=== PATIENT | male | born 1960 | race Caucasian/White ===

== ENCOUNTER → 2019-09-18 09:53 | Outpatient (BNVA) | payer MEDICARE, SELFPAY | PROVIDERS: Family Provider Family Medicine; PCP Family Medicine; Visit Provider Otolaryngology | DX: J32.9 Chronic sinusitis, unspecified (principal); J34.2 Deviated nasal septum; J34.3 Hypertrophy of nasal turbinates; J31.0 Chronic rhinitis; T48.5X5A Adverse effect of other anti-common-cold drugs, initial encounter; X58.XXXA Exposure to other specified factors, initial encounter; G47.30 Sleep apnea, unspecified; F17.210 Nicotine dependence, cigarettes, uncomplicated | CPT/HCPCS: 99203; 99214 ==

== ENCOUNTER 2019-09-19 13:49 | Outpatient (CLI) | payer MEDICARE, SELFPAY ==
--- NOTE | 2019-09-19 14:05 | XR_ITS ---
WS: [id number] Chest 2 views, 09/19/2019 Clinical Data: chest pain right sided Comparison: PA and lateral chest, 05/30/2017. Findings: No nodules, masses or effusions are seen. The heart is normal. The pulmonary vascularity is not increased. No pneumonia or pneumothorax is seen. Negative chest. XR/XR chest 2V* [id number] Impression:
--- NOTE | 2019-09-19 14:05 | CT_ITS ---
WS: [id number] CT SINUSES TECHNIQUE: Noncontrast CT of the paranasal sinuses with coronal and sagittal reformatted images. CLINICAL INFORMATION: CHRONIC SINUSITIS COMPARISON: None. DLP: [id number] scans at [facility] use at least one of these dose optimization techniques: automat ed exposure control; mA and/or kV adjustment per patient size (includes targeted exams where dose is matched to clinical indication); or iterative reconstruction. FINDINGS: Nasal septum is midline. Normal anterior nasal bones. Maxillary sinuses are well aerated. Hypoplastic frontal sinuses. Mild mucosal thickening left frontal sinus and frontoethmoidal recess with partial opacification of the frontal ethmoidal recess. Mild mucosal thickening ethmoid air cells. 4 Sphenoid sinuses are well aerated. Mild mucosal thickening with mild narrowing along the sphenoid sin us ostia. Mastoid air cells are well aerated. Ostiomeatal units are patent bilaterally. 1. Nasal septum is midline. 2. Ostiomeatal units are patent bilaterally. 3. Maxillary sinuses are well aerated. 4. Mild mucosal thickening in the left frontal sinus with partial opacification the left frontal eth moidal recess. Hypoplastic right frontal sinus. 5. Mild mucosal thickening in the ethmoid air cells. 6. Mastoid air cells are well aerated. CT/CT sinus wo con* [id number] IMPRESSION:
== END 2019-09-19 13:50 | disposition home or self-care (01) ==
LOC: RAD 13:53
PROVIDERS: Family Provider Family Medicine; PCP Family Medicine; Visit Provider Family Medicine
DX: R07.9 Chest pain, unspecified (principal); J32.9 Chronic sinusitis, unspecified
CPT/HCPCS: 70486; 71046

== ENCOUNTER → 2019-09-23 13:03 | Outpatient (BNVA) | payer MEDICARE, SELFPAY | PROVIDERS: Family Provider Family Medicine; PCP Family Medicine; Visit Provider Psychiatry & Neurology Psychiatry | DX: F34.1 Dysthymic disorder (principal); F15.20 Other stimulant dependence, uncomplicated; F25.0 Schizoaffective disorder, bipolar type | CPT/HCPCS: 99213 ==

== ENCOUNTER 2019-10-24 16:31 | Outpatient (CLI) | payer MEDICARE, SELFPAY ==
--- NOTE | 2019-10-24 16:39 | XRR_ITS ---
PROCEDURE INFORMATION: Exam: XR Chest, 2 Views Exam date and time: 10/24/2019 4:46 PM Age: 59 years old Clinical indication: Cough; Additional info: SOB, cough x 1 week TECHNIQUE: Imaging protocol: XR of the chest Views: 2 views. COMPARISON: CR XR chest 2V* [id number] 09/19/2019 2:31 PM FINDINGS: Lungs: Stable changes of emphysema and stable chronic interstitial changes in both lungs. Improved aeration of the lung bases. No focal consolidation. Pleural space: Unremarkable. No pleural effusion. No pneumothorax. Heart/Mediastinum: Unremarkable. No cardiomegaly. Bones/joints: Unremarkable. XR/XR chest 2V* [id number] IMPRESSION: No acute finding.
== END 2019-10-24 16:32 | disposition home or self-care (01) ==
LOC: RAD 16:35
PROVIDERS: Family Provider Family Medicine; PCP Family Medicine; Visit Provider Family Medicine
DX: R06.02 Shortness of breath (principal)
CPT/HCPCS: 71046; 87804

== ENCOUNTER → 2019-10-30 15:48 | Outpatient (BNVA) | payer MEDICARE, SELFPAY | PROVIDERS: Family Provider Family Medicine; PCP Family Medicine; Visit Provider Otolaryngology | DX: J32.9 Chronic sinusitis, unspecified (principal); J34.2 Deviated nasal septum; J34.3 Hypertrophy of nasal turbinates; G47.30 Sleep apnea, unspecified; J31.0 Chronic rhinitis; T48.5X5A Adverse effect of other anti-common-cold drugs, initial encounter; X58.XXXA Exposure to other specified factors, initial encounter | CPT/HCPCS: 96372; 99214; J3301 ==

== ENCOUNTER 2019-11-11 08:32 | Outpatient (CLI) | payer MEDICARE, SELFPAY ==
--- NOTE | 2019-11-11 08:52 | MR_ITS ---
WS: [id number] MRI CERVICAL SPINE HISTORY: cervical pain COMPARISON: Cervical spine CT 05/10/2019 Straightening of the normal cervical lordosis. Small amount of edema along the adjacent endplates of C7 and T1. Disc space narrowing is mild to moderate with endplate osteophytes extending anterior and posterior m ost significant from C4 to C7. Signal within the cord is normal. Craniocervical junction, C1 and C2 relationship, odontoid process and soft tissues are normal. C2-C3: Normal. C3-C4: Mild osteophytic ridging and disc bulging. There is shallow central disc protrusion with near complete effacement of CSF. No stenosis. C4-C5: Annular disc bulging and osteophytic ridging with facet arthropathy. Very shallow central disc protrusion. Mild LEFT foraminal stenosis due to osteophyte disease. C5-C6: Osteophytic ridging with facet arthropathy and disc bulging. Mild disc osteophyte contact on t he ventral cord. There is a very slight central and bilateral foraminal stenosis. C6-C7: Diffuse annular disc bulging extends asymmetrically to the RIGHT. There is deformity of the RI GHT lateral thecal sac with posterior displacement of the right-sided nerve roots. Mild central and b ilateral foraminal narrowing. Small disc osteophyte in the RIGHT foramen with mild posterior displace ment of the nerve roots. C7-T1: Diffuse asymmetric disc bulging and osteophytosis. Very slight encroachment and narrowing of t he central canal. There is mild central and bilateral foraminal stenosis. Paraspinal soft tissue are normal. MR/MR cervical spin wo con* [id number] IMPRESSION: 1. Multilevel mild to moderate spondylosis throughout the cervical spine. No s evere stenosis. 2. Reactive marrow edema in the adjacent endplates at C7-T1. 3. Mild central and bilateral foraminal stenosis at C7-T1 due to disc osteophy te disease. 4. Mild LEFT foraminal stenosis at C4-5 due to osteophytes. 5. Minimal central and bilateral foraminal stenosis at C5-6. 6. Mild disc osteophyte deformity of the RIGHT lateral thecal sac at C6-7 resu lting in mild central and bilateral foraminal narrowing. Most significant encro achment on the nerve roots in the RIGHT foramen.
--- NOTE | 2019-11-11 09:30 | XR_ITS ---
WS: [id number] LATERAL CERVICAL SPINE: 3 view. Lateral radiographs are performed in upright neutral, flexion and extension to the patient's toleranc e. HISTORY: cervical pain COMPARISON: 05/10/2019 and 03/19/2018 Straightening of the normal cervical lordosis. Moderate disc space narrowing and osteophytosis from C 4 through C7. There are small endplate osteophytes extend posteriorly from C5 and C6 by 3 mm. No frac tures. Less than 2 mm retrolisthesis of C3, C4 and C5 with extension. XR/XR cervical spine fl/ex [id number] IMPRESSION: 1. Mild spondylitic changes from C4 through C7. 2. No instability. Less than 2 mm retrolisthesis of C3, C4 and C5 with extensi on.
== END 2019-11-11 08:33 | disposition home or self-care (01) ==
LOC: RADWPI 08:38
PROVIDERS: Family Provider Family Medicine; PCP Family Medicine; Visit Provider Specialist
DX: M50.020 Cervical disc disorder with myelopathy, mid-cervical region, unspecified level (principal); M47.892 Other spondylosis, cervical region; M48.03 Spinal stenosis, cervicothoracic region; M48.02 Spinal stenosis, cervical region; M25.78 Osteophyte, vertebrae
CPT/HCPCS: 72040; 72141

== ENCOUNTER → 2019-11-21 15:24 | Outpatient (BNVA) | payer MEDICARE, SELFPAY | PROVIDERS: Family Provider Family Medicine; PCP Family Medicine; Visit Provider Otolaryngology | DX: J34.2 Deviated nasal septum (principal); J34.3 Hypertrophy of nasal turbinates; G47.30 Sleep apnea, unspecified; J31.0 Chronic rhinitis; T48.5X5A Adverse effect of other anti-common-cold drugs, initial encounter; X58.XXXA Exposure to other specified factors, initial encounter; R49.0 Dysphonia | CPT/HCPCS: 31575; 99214 ==

== ENCOUNTER → 2019-11-26 15:00 | Outpatient (BNVA) | payer MEDICARE, SELFPAY | PROVIDERS: Family Provider Family Medicine; PCP Family Medicine; Visit Provider Family Medicine | DX: Z01.818 Encounter for other preprocedural examination (principal) | CPT/HCPCS: 80053; 85025 ==

== ENCOUNTER → 2019-11-28 12:13 | Outpatient (BNVA) | payer MEDICARE, SELFPAY | PROVIDERS: Family Provider Family Medicine; PCP Family Medicine; Visit Provider Family Medicine | DX: Z01.818 Encounter for other preprocedural examination (principal) | CPT/HCPCS: 80053; 85025 ==

== ENCOUNTER 2019-12-02 10:23 | Observation (INO) | payer MEDICARE, SELFPAY ==
[2019-11-29 08:24] VITALS: BMI 27.3
--- NOTE | 2019-11-29 08:44 | ANES.PREANE2 ---
Pre-Anesthetic Assessment Pre-Anesthetic Assessment: Height/Weight: Height 1.75 m Weight 83.915 kg Preop Diagnosis: Intervertebral disc disorder with myelopathy, mid cervical region Proposed Procedure: Operation Date: 12/02/19 07:00 Proposed Procedures p Anterior Cervical Discecotmy&Fusion C5-C6, C6-C7 2Lev 92450 M50.020(Not Applicable) - Baldomero Moreno MD Social: Social History: Tobacco Packs per day: 50+ Comment: quit 1 month Exam: Pre-Anes Outpt Exam: alert, oriented x 3, clear to auscultation bilaterally and regular rate & rhythm Airway: Submandibular: WNL Cervical ROM: WNL MP: 1 Dentition: False Pulmonary: Pulmonary: COPD and Sleep apnea Comments: breathing feels good CV/HEM: Comments: stress test '10 negative 2 blocks/2FOS without agina/ moderate DOWNING Musc/skel: Musc/skel: Lower Back Pain Comments: bilateral radiculopathy lower & upper extremities Anesthetic Plan: ASA status: 3 Anesthesia: General PFSH Anesthesia PFSH: Social History Smoking and tobacco status: former smoker Alcohol intake: never Lives independently: Yes Marital status: Current occupational status: disabled History of recent travel: No Data Anesthesia Cardiac Studies: No Data to Display
[2019-12-02] VITALS (19 sets, daily range): BP systolic 127–173; BP diastolic 61–118; PULSE 99–123; RESP 7–19; TEMP 36.4–37.1; O2SAT 90–100
[2019-12-02] MEDS: sodium chloride 0.9% 1,000 ML 30 ML IV (06:09)
[2019-12-02] MEDS: fentaNYL 50 mcg/mL INJ 2mL IVP ×2 (06:29→07:03)
--- NOTE | 2019-12-02 06:53 | P.HPUD_ITS ---
Surgery/Procedure H&P Update DATE OF PROCEDURE: December 02, 2019 DATE H&P PERFORMED: 11/26/19 H&P UPDATE INFORMATION: I have reviewed H&P completed within last 30 days and [place] [facility] [place] indicated [place]OP DIAGNOSIS: Intervertebral disc disorder with myelopathy, mid cervical region PRIMARY INDICATION FOR PROCEDURE: Pain PLANNED PROCEDURE: Operation Date: 12/02/19 07:00 Proposed Procedures Anterior Cervical Discectomy/Fusion/fixation, C5-C6, C6-C7 64203 M50.020(Not Applicable) - Baldomero Moreno MD
--- NOTE | 2019-12-02 06:59 | P.ANESUD_ITS ---
Pre-Anesthetic Update Pre-Anesthetic Assessment: Date of Surgery/Procedure: 12/02/19 Preop Dariana gnosis: Intervertebral disc disorder with myelopathy, mid cervical region Proposed Procedure: Operation Date: 12/02/19 07:00 Proposed Procedures p Anterior Cervical Discecotmy&Fusion C5-C6, C6-C7 2Lev 90381 M50.020(Not Applicable) - Baldomero Moreno MD Any changes to Pre-Anesthetic Assessment?: No Last Intake: Intake NPO > 8 hrs Last Liquid Date 12/01/19 Last Solid Date 12/01/19 Vitals: Temperature 98 F 12/02/19 06:01 Temperature Source Temporal Artery S can 12/02/19 06:01 Pulse Rate 99 12/02/19 06:01 Pulse Rhythm 12/02/19 06:01 Pulse Strength 3+ Normal 12/02/19 06:01 Respiratory Rate 18 12/02/19 06:29 Respiratory Effort 12/02/19 06:29 Respiratory Depth Normal 12/02/19 06:29 Respiratory Patter n 12/02/19 06:29 Blood Pressure 134/94 12/02/19 06:01 Blood Pressure Leandra n 107 12/02/19 06:01 Pulse Oximetry 94 12/02/19 06:29 Oxygen Delivery Me thod 12/02/19 06:01 Exam: Pre-Anes Outpt Exam: alert, oriented x 3, clear to auscultation bilaterally and regular rate & rhythm Cardiac Studies: No Data to Display
--- NOTE | 2019-12-02 07:07 | PM.OP2 ---
 Brief Operative Note: Date of procedure: 12/02/19 Pre-op diagnosis: Intervertebral Disc disorder with myelopathy, midcervical Post-op diagnosis: same (with instability of joint) Procedure Done: C5-C7 ACDFF Surgeon: Baldomero Moreno Estimated blood loss (mL): 25 Complications: None Post-op Plan: PACU, then surgical cuenca Condition: stable Disposition: PACU Coding Level of Care Code Acute Line Service Supervisor for Alma Kenny
--- NOTE | 2019-12-02 07:09 | XRR_ITS ---
PROCEDURE INFORMATION: Exam: XR Spine, 1 view; Cervical Exam date and time: 12/02/2019 8:17 AM Age: 59 years old Clinical indication: Device placement; Other: Cervical; Additional info: Surgery TECHNIQUE: Imaging protocol: XR of the spine, 1 view. Exam focused on the cervical spine. COMPARISON: CR XR cervical spine fl/ex [id number] 11/11/2019 8:54 AM FINDINGS: Tubes, catheters and devices: An endotracheal tube is present in the cervical thoracic trachea, extending into the neck Vertebrae: Mild C4-C5 retrolisthesis. Posterior C4-C5 and C5-C6 disc narrowing. Mild C5-C6 spondylosis. Heart/Mediastinum: And anterior needle is present overlying the trachea, the tip at C5-C6 transverse level. Soft tissues: Surgical clips overlie the C1-C3 level. XR/XR cervical spine 1ort [id number] IMPRESSION: 1. Degenerative changes as above. 2. No acute cervical spinal bony abnormality identified.
--- NOTE | 2019-12-02 07:24 | XRR_ITS ---
PROCEDURE INFORMATION: Exam: XR Spine, 1 view; Cervical Exam date and time: 12/02/2019 8:07 AM Age: 59 years old Clinical indication: Device placement; Other: Cervical; Additional info: Surgery TECHNIQUE: Imaging protocol: XR of the spine, 1 view. Exam focused on the cervical spine. COMPARISON: CR XR cervical spine 1ort [id number] 12/02/2019 7:36 AM FINDINGS: Tubes, catheters and devices: An endotracheal tube is present in the cervical thoracic trachea, extending into the neck Vertebrae: Mild C4-C5 retrolisthesis. Posterior C4-C5 and C5-C6 disc narrowing. Mild C5-C6 spondylosis. The needle now haney the anterior C5-C6 disc level. Dental: Edentulous maxilla and mandible. Soft tissues: Surgical clips overlie the C1-C3 level. Anterior cervical soft tissue were tractor. XR/XR cervical spine 1ort [id number] IMPRESSION: The needle now haney the anterior C5-C6 disc level.
[2019-12-02] MEDS: thrombin 5,000 unit SDV 5000 UNIT XX (07:51)
--- NOTE | 2019-12-02 07:55 | XR_ITS ---
WS: [id number] CERVICAL SPINE TECHNIQUE: 3 views of the cervical spine CLINICAL INFORMATION: POST FUSION AP/LAT IN PACU COMPARISON: None. FINDINGS: Moderate spondylitic changes. Slight exaggeration of the normal cervical lordosis. Early postoperativ e fusion C5-C7 with interbody fusion. Surgical clips in the high left neck. Moderate facet arthropath y. XR/XR cervical spine 3V* [id number] IMPRESSION: 1. Slight exaggeration normal cervical lordosis. 2. Satisfactory early Postoperative changes anterior cervical fusion C5-C7. 3. Surgical clips left upper neck.
--- NOTE | 2019-12-02 10:41 | SUR.PHASEI ---
PT TO PACU SLEEPY WITH ORAL AIRWAY IN PLACE WITH GOOD RESP NOTED VSS IV PATENT NECK DRESSING D/I NO SWELLING C COLLAR IN PLACE. PT DOES NOT AWAKE TO VOICE.
--- NOTE | 2019-12-02 11:37 | SUR.PHASEI ---
1100 PT TO ROOM ALERT UP TO BATHROOM WITH MINIMAL ASSIST , NURSE TO DO VSS LATER , PT DENIES NAUSEA AND PAIN TAKING OCC ICE CHIPS WITHOUT DIFFICULTY, NECK UNCHANGED DRESSING D/I WITH ONE PINHEAD SIZE DROP OF DRAINAGE LT RED. NO SWELLING, C COLLAR IN PLACE
[2019-12-02] MEDS: ketorolac 30 mg/mL INJ IVP (12:04)
[2019-12-02] MEDS: lactated ringers 1,000 ML 90 ML IV (12:04)
[2019-12-02] MEDS: atorvastatin 40 mg Tablet 20 MG PO (12:04)
--- NOTE | 2019-12-02 13:50 | ECG_ITS ---
Measurements Intervals [place] Rate: 109 P: 55 W[place]: 163 QRS: 57 QRSD: 96 T: 64 QT: 299 QTc: 403 SINUS TACHYCARDIA NONSPECIFIC T-WAVE ABNORMALITY ABNORMAL RHYTHM ECG Compared to ECG 02/17/2018 16:02:57 T-wave abnormality now present Sinus rhythm no longer present Electronically Signed On 12-02-2019 19:24:13 CDT by Jaky Nicole M.D. [email or web address]
--- NOTE | 2019-12-02 14:18 | PM.CONSULT ---
Providers/Reason For Consult Consulting Physican/Specialty*: Mauri Berry MD, hospitalist Reason for Consult*: Tachycardia, hypertension Attending Physician: Baldomero Moreno MD Primary Care Provider: Christi Zurita DO History of Present Illness History of Present Illness Bull Combs is a 59 year old male who underwent C5/C7 ACDF today by Dr. Moreno without complications. When he transition to the floor apparently he was quite tachycardic, in the 120s with an elevated blood pressure of 173/118 recorded. The nurse at first told me that there was concern of SVT, but upon reviewing telemetry it appears he is in sinus tachycardia. Patient himself reports feeling hot but otherwise no symptoms. He denies any shortness of breath, chest discomfort, or any other symptoms. Review of Systems General: Reports: 10 or more systems reviewed and unremarkable except in HPI and below Const: Denies: fever or chills Eyes: Denies: blurry vision ENMT: Denies: throat pain Card: Denies: chest pain, palpitations, edema or lightheadedness Resp: Denies: shortness of breath GI: Denies: abdominal pain : Denies: difficulty urinating Musc: Reports: neck pain Skin/Breast: Denies: rash or itching Psych: Denies: anxiety or depression Endo: Denies: excessive urination Js/Lymph: Denies: easy bruising All/Imm: Denies: hives Meds/Allergies Home Medications and Allergies Home Medications Medication Instructions Recorded Confirmed Type amitriptyline 10 mg tablet 20 mg PO .at bedtime tab 09/09/19 12/02/19 History epinephrine 0.3 mg/0.3 mL 0.3 mg IM ONCE 09/09/19 11/29/19 History injection, auto-injector fluticasone propionate 50 1 spray INTRANASAL BID 09/09/19 12/02/19 History mcg/actuation nasal spray,suspension omeprazole 20 mg capsule,delayed 20 mg PO DAILY cap 09/16/19 12/02/19 History release trazodone 50 mg tablet 75 mg PO .HS #60 tab 09/23/19 12/02/19 Rx ropinirole 4 mg tablet 4 mg PO .at bedtime #30 tab 10/09/19 12/02/19 Rx testosterone cypionate 200 mg/mL 200 mg IM .COMPLEX #2.5 each 10/10/19 12/02/19 Rx intramuscular kit syringe with needle 3 mL 23 x 1 #50 each 10/11/19 12/02/19 Rx ipratropium 20 mcg-albuterol 100 1 puff INHALATION Q6H #4 gm 10/24/19 12/02/19 Rx mcg/actuation mist for inhalation sumatriptan succinate 100 mg tablet See Rx Instructions PO .COMPLEX #9 10/28/19 12/02/19 Rx tab ascorbic acid (vitamin C) 500 mg 500 mg PO DAILY 10/29/19 12/02/19 History capsule montelukast 10 mg tablet 10 mg PO DAILY #90 tab 11/05/19 12/02/19 Rx atorvastatin 20 mg tablet 20 mg PO .at bedtime #30 tab 11/13/19 12/02/19 Rx duloxetine [Cymbalta] 60 mg PO BID 12/02/19 12/02/19 History Allergies Allergy/AdvReac Type Severity Reaction Status Date / Time insect venom Allergy Severe Anaphylaxis Verified 12/02/19 05:55 Current Medications Current Medications Generic Name Dose Route Start Last Admin Trade Name Freq PRN Reason Stop Dose Admin Atorvastatin Calcium 20 mg 12/02/19 11:45 12/02/19 12:04 Lipitor PO 20 mg BEDTIME RICH Administration Lactated Ringer's 1,000 mls @ 90 mls/hr 12/02/19 10:30 12/02/19 12:04 Lactated Ringers IV 90 mls/hr .[id number] RICH Administration Cefazolin Sodium/Dextrose 2 gm in 50 mls @ 100 mls/hr 12/02/19 10:30 12/02/19 12:33 Kefzol IV 12/03/19 02:59 Infused Q8H RICH Infusion Protocol Ketorolac Tromethamine 30 mg 12/02/19 10:30 12/02/19 12:04 Toradol IVP 30 mg Q6H PRN Administration BREAKTHROUGH PAIN PFSH Acute PFSH: Medical History (Updated 12/02/19 @ 14:28 by Mauri Berry MD) Chronic back pain Chronic neck pain Chronic tension headache CPAP (continuous positive airway pressure) dependence DDD (degenerative disc disease), lumbar Degenerative disc disease, cervical Depression Enrolled in chronic care management Erectile dysfunction GERD (gastroesophageal reflux disease) Hearing loss Hoarseness Hypercholesterolemia Intervertebral disc disorders with radiculopathy, lumbar region Iron deficiency anemia Migraine with aura, not intractable, without status migrainosus Opioid dependence, in remission Pulmonary emphysema QT prolongation Restless legs syndrome Testosterone deficiency Surgical History (Updated 12/02/19 @ 14:30 by Mauri Berry MD) History of ear surgery History of knee surgery History of surgery on upper extremity S/P hernia surgery Social History Smoking and tobacco status: former smoker Alcohol intake: never Lives independently: Yes Marital status: Current occupational status: disabled History of recent travel: No Vitals/I&O/Wt Last Vital Signs Temp 98.5 F 12/02/19 13:12 Pulse 122 H 12/02/19 13:12 Resp 19 H 12/02/19 13:12 BP 144/79 12/02/19 13:12 Pulse Ox 91 12/02/19 13:12 12/01/19 12/02/19 12/02/19 22:59 06:59 14:59 Intake Total 2465 / 2465 Output Total 425 / 425 Balance 2039 Physical Exam Narrative: EXAM NARRATIVE: General exam is a white male in no apparent distress, conversive with a current heart rate of around 110 sinus tachycardia HEENT: Pupils equally round. Oropharynx clear. Neck demonstrates brace Cardiovascular tachycardic but regular. No murmur Lungs clear no wheezing or crackles Abdomen is soft with positive bowel sounds. No obvious organomegaly was deferred Extremities no cyanosis clubbing or edema Urinary Catheter Management^: F: Cath Placed During This Visit: yes, but has since been removed by the nurse Urinary Catheter Date of Insertion: 12/02/19 Urinary Catheter Time of Insertion: 07:30 Date Urinary Catheter Removed: 12/02/19 Time Urinary Catheter Discontinued: 10:23 A&P Assessment and plan (1) Sinus tachycardia: This could have been a post anesthetic effect. Either way it is dissipating. He has no significant other symptoms to suggest significant pathology. At this point we will check his CBC, BMP and EKG and follow. Telemetry arranged Status: Acute Code(s): R00.0 - Tachycardia, unspecified (2) Hypertension: 1 markedly elevated blood pressure. I am not for sure if this was rechecked, or he was having pain or discomfort at that time. Will follow. Hydralazine as needed Status: Acute Code(s): I10 - Essential (primary) hypertension (3) History of cervical spinal surgery: Directly postoperative. Appears to be doing well. Status: Acute Code(s): Z98.890 - Other specified postprocedural states Additional A&P Information COPD no evidence of exacerbation Multiple other medical problems, as outlined in his past medical history SCDs for DVT prophylaxis Consult Attestations Medical Necessity Statement: As per primary Time Spent in Patient Care: Greater than 35 minutes Coding Level of Care Code Acute Window And Door Installer for Chg Fwd Diagnoses Sinus tachycardia R00.0 Hypertension I10 History of cervical spinal surgery Z98.890
[2019-12-02] MEDS: HYDROcodone-acetaminophen 7.5-325 mg Tablet PO (14:40)
[2019-12-02] MEDS: hyDRALAzine 20 mg/mL INJ 1 mL 10 MG IVP (14:44)
[2019-12-02] MEDS: nicotine 21 mg Patch 1 PATCH TRANSDERMA (15:19)
[2019-12-02 16:42] LABS: Basophils # 0.1 10^3/uL (0.0-0.1); Basophils % 0.5 %; Eosinophils % 0.3 %; Hematocrit 51.4 % (42.0-52.0); Lymphocytes # 0.8 10^3/uL (0.8-4.8); Lymphocytes % 5.1 %; Mean Corpuscular HGB Conc 33.1 g/dL (30.0-36.0); Mean Corpuscular Volume 90.7 fL (80-94); Mean Platelet Volume 9.4 fL (7.4-10.4); Monocytes # 0.2 10^3/uL (0.2-0.9); Monocytes % 1.3 %; Neutrophils # 13.8 10^3/uL (1.8-7.7); Neutrophils % 90.8 %; Nucleated Red Blood Cells % 0 %; Platelet Count 405 10^3/cmm (130-400); Red Blood Count 5.67 10^6/uL (4.1-5.3); Red Cell Distribution Width 14.5 % (12.1-15.1); White Blood Count 15.2 10^3/uL (4.0-10.0)
--- NOTE | 2019-12-02 16:49 | PM.DCS ---
Discharge Providers Date of Admission: 12/02/19 10:23 Date of Discharge: December 02, 2019 Attending Provider at Admission: Baldomero Moreno MD Attending Provider at Discharge: Baldomero Moreno MD Primary Care Provider: Christi Zurita DO Diagnoses at Discharge Discharge Diagnosis (1) Cervical disc disorder with myelopathy of mid-cervical region: Status: Chronic (2) Instability of joint: Status: Acute (3) Sinus tachycardia: Status: Acute (4) Hypertension: Status: Acute Reason for Visit Reason for Visit: Reason For Visit: Cervical disc disorder with myelopathy of mid-cerv Brief History: The patient is a 59-year-old male with symptomatic, radiographically confirmed cervical disc/joint disease with associated neural impingement. Imaging studies demonstrated dominant encroachment sites at C5-C6 and C6-C7. Conservative management did not provide adequate lasting symptom relief. After review of the diagnostic and treatment options with the risks/potential benefits/rationale for each, the patient requested to proceed with surgical intervention. Hospital Course Hospital Course: The patient underwent a C5-C6, C6-C7 ACDFF on 12/02/2019. He tolerated the procedure well. He noted improvement in preoperative symptoms following surgery. He demonstrated postoperative tachycardia/hypertension, unrelated to pain, and a Hospitalist consult was obtained. He was evaluated and diagnosed with a sinus tachycardia. The hypertension resolved. No additional medical intervention was required. He completed preoperative and postoperative intravenous antibiotic doses, and the physical therapy postoperative spine protocol. He was ambulatory, voiding, and tolerating regular diet prior to requested discharge home on the afternoon of the date of surgery. Physical Exam Const: COMMON NORMALS: no apparent distress GENERAL APPEARANCE: cooperative and comfortable Neck/C-Spine: COMMON NORMALS: no JVD GENERAL: Yes trachea midline CERVICAL SPINE: Yes collar present NECK IMAGES: 1. surgical incision Resp: COMMON NORMALS: normal respiratory effort EFFORT & INSPECTION: Yes able to speak in complete sentences, No tachypneic and No respiratory distress Cardio: COMMON NORMALS: no JVD Extremity: COMMON NORMALS: no clubbing, cyanosis or edema Neuro: COMMON NORMALS: moves all extremities MOTOR EXAM: strength 5/5 throughout (bilateral upper extremities) Psych: COMMON NORMALS: mental status grossly normal, thought process normal and speech normal ATTITUDE: Yes calm and Yes engaged ACTIVITY/MOTOR BEHAVIOR: Yes appropriate eye contact SPEECH: Yes normal speech MOOD & AFFECT: Yes euthymic mood THOUGHT PROCESS: normal thought process ATTENTION/CONCENTRATION: Yes attention grossly intact INSIGHT: insight good JUDGEMENT: judgment good Skin: WOUNDS: Yes surgical site (Left anterolateral neck surgical site dressing clean/dry/intact) Urinary Catheter Management^: F: Cath Placed During This Visit: yes, but has since been removed by the nurse Urinary Catheter Date of Insertion: 12/02/19 Urinary Catheter Time of Insertion: 07:30 Date Urinary Catheter Removed: 12/02/19 Time Urinary Catheter Discontinued: 10:23 Discharge Data Data Completed and Pending: Completed Studies During Hospitalization Category Date Time Status XR cervical spine 1 view portable [ XR cervical spine Exams 12/02/19 07:24 Completed 1Vport [id number]] Rou cira XR cervical spine 1Vport [id number] Rout ine Exams 12/02/19 07:09 Completed XR cervical spine 3V* [id number] Routine Exams 12/02/19 07:55 Completed Pathology: Surgic al [PTH] Routine Pth 12/02/19 10:24 Completed Imaging^: Other Xray: Radiologist's impression: IMPRESSION: 1. Slight exaggeration normal cervical lordosis. 2. Satisfactory early Postoperative changes anterior cervical fusion C5-C7. 3. Surgical clips left upper neck. Procedures Performed: C5-C6, C6-C7 anterior cervical discectomy/fusion/fixation. Intravenous antibiotics. Physical therapy. Hospitalist consult. Vitals: Last Vital Signs Temp 98.2 F 12/02/19 17:22 Pulse 115 H 12/02/19 17:22 Resp 18 12/02/19 17:22 BP 132/61 12/02/19 17:22 Pulse Ox 95 12/02/19 17:22 Discharge Plan Discharge Patient Disposition: Home, Self-Care Condition: Stable Prescriptions: Continued fluticasone propionate [Allergy Relief (fluticasone)] 50 mcg/actuation spray,suspension 1 spray INTRANASAL BID RF: 0 epinephrine 0.3 mg/0.3 mL auto-injector 0.3 mg IM ONCE RF: 0 ascorbic acid (vitamin C) 500 mg capsule 500 mg PO DAILY RF: 0 Combivent Respimat 20-100 mcg/actuation mist 1 puff INHALATION Q6H Qty: 4 RF: 0 omeprazole 20 mg capsule,delayed release(DR/EC) 20 mg PO DAILY RF: 0 testosterone cypionate 200 mg/mL kit 200 mg IM .COMPLEX Qty: 2.5 RF: 2 (DME) BD Eclipse Luer-Errol 3 mL 23 x 1 syringe See Rx Instructions .ROUTE .MEDSUPPLY Qty: 50 RF: 0 sumatriptan succinate [Imitrex] 100 mg tablet See Rx Instructions PO .COMPLEX Qty: 9 RF: 0 montelukast [Singulair] 10 mg tablet 10 mg PO DAILY Qty: 90 RF: 0 Cymbalta 60 mg Capsule,Delayed Release(Dr/Ec) 60 mg PO BID RF: 0 No Action trazodone 50 mg tablet 75 mg PO .HS Qty: 60 RF: 2 ropinirole 4 mg tablet 4 mg PO .at bedtime Qty: 30 RF: 1 atorvastatin 20 mg tablet 20 mg PO .at bedtime Qty: 30 RF: 0 amitriptyline 10 mg tablet 20 mg PO .at bedtime Qty: 60 RF: 0 Discharge Orders: Discharge Order (Routine); Ordered 12/02/19 Ordered By: Baldomero Moreno Referrals: Baldomero Moreno MD [Physician] - 2 weeks (Please call and schedule a follow up in 2 weeks.) Discharge Diet: Regular Discharge Activity: Limit activity as instructed and As per PT/OT instructions Patient Instructions: Hydrocodone/Acetaminophen (By mouth), Anterior Cervical Discectomy (DC) Activity Restrictions/Additional Instructions: Activity -Cervical fusion: Wear cervical collar 24 hours a day. Change as necessary for showering, shaving, or if it becomes soiled. -No lifting or reaching overhead. - No driving until office followup visit - No lifting/pushing/pulling over 10 pounds - Avoid twisting or bending - Walking is encouraged - Home exercise per physical therapist - You may engage in sexual intercourse at any time as long as it is comfortable for you - Check with your doctor before returning to work. Notify your doctor if you develop: - temperature of 101.5 degrees F. or higher - redness or swelling of the incision - Foul drainage - increasing pain - increasing numbness or tingling in the arms or legs - New or increasing problems with vision, balance, memory, speaking, nausea or vomiting Hygiene: - Showering is okay - No tub baths or soaking Other: Remove outer bandage 3 days after surgery. If you have paper strips, leave in place until they fall off on their own. If you have stitches, keep your incision dry until the stitches are removed. Your doctor's office is available to answer any questions from 7 AM to 5:00 PM, Monday through at [phone]. After hours, go to the emergency room at [facility] or call 911 for assistance. 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
[2019-12-02 17:01] LABS: Alanine Aminotransferase 25 U/L (0-41); Alkaline Phosphatase 100 IU/L (40-130); Anion Gap 18.3 (5-19); Aspartate Amino Transferase 23 U/L (0-40); Blood Urea Nitrogen 14 mg/dL (8-23); Calcium 9.3 mg/dL (8.5-10.5); Carbon Dioxide 22 mmol/L (22-29); Chloride 100 mmol/L (98-107); Globulin 2.7 g/dL (1.3-4.6); Glomerular Filtration Rate 51.7 mL/min (90-130); Glucose 163 mg/dL (65-115); Magnesium 1.7 mg/dL (1.7-2.3); Osmolality Calculated 280 mOsm/kg (285-295); Potassium 5.3 mmol/L (3.5-5.1); Sodium 135 mmol/L (136-145); Thyroid Stimulating Hormone 0.79 uIU/mL (0.27-4.20); Total Bilirubin 0.4 mg/dL (0.15-1.2); Total Protein 6.7 g/dL (6.6-8.7)
--- NOTE | 2019-12-02 17:42 | P.OP_ITS ---
Operative Report Date of procedure: December 02, 2019 Pre-op Diagnosis: Intervertebral disc disorder with myelopathy, mid cervical region Post-op diagnosis: same (With instability of joint) Procedure Done: C5-C6, C6-C7 anterior cervical discectomy, with osteophytectomy. C5-C6, C6-C7 anterior cervical plate/screw fixation. C5-C6, C6-C7 placement of intervertebral prosthetic devices. C5-C6 anterior cervical fusion utilizing morselized autograft obtained from the osteophytectomy portions of the procedure. Implants: Synthes Vectra plate/screw system. ACIS ProTi Spacers. Specimens removed/disposition: C5-C6, C6-C7 disc Pathology: other (Cervical disc) Surgeon: Baldomero Moreno Anesthesia: General Estimated blood loss (mL): 25 IV fluids (mL): 1,300 Urine output (mL): 300 Complications: None. Condition: stable Disposition: PACU Brief History: The patient is a 59-year-old male with symptomatic, radiographically confirmed cervical disc/joint disease with associated neural impingement. Imaging studies demonstrated dominant encroachment sites at C5-C6 and C6-C7. Conservative management did not provide adequate lasting symptom relief. After review of the diagnostic and treatment options with the risks/potential benefits/rationale for each, the patient requested to proceed with surgical intervention. Procedure: After routine preoperative evaluation and informed consent were obtained, the patient was taken to the Operating Room and placed under general endotracheal anesthesia. He was positioned supine and fit in the Lopez-[place] tongs for the application of in-line cervical traction. The anterolateral neck on the left was prepared with hair clippers. A proposed transverse skin incision was marked with a sterile skin marker, utilizing intraoperative radiography and regional anatomy for localization. The area was scrubbed with Betadine, prepped with DuraPrep, and draped with sterile towels and drapes. [place]an surgical barrier was applied. The proposed incision site was infiltrated with 1% Xylocaine with Epinephrine. A skin incision was made and carried down into the subcutaneous tissues. The platysma was identified and divided in the direction of its fibers. A plane was dissected just medial to the carotid sheath and lateral to the midline esophagus and trachea. Prevertebral soft tissues were bluntly dissected free of the anterior margin of the cervical spine. Longus coli muscles were freed from their medial attachments. Deep self-retaining retractors were placed. Intraoperative radiography verified the desired surgical levels. The C5-C6 and C6-C7 interspaces were sequentially incised with a #11 blade. Discectomies were accomplished utilizing various curettes and pituitary rongeurs. Anterior marginal osteophytes were resected with Lempert and Kerrison rongeurs. Cartilaginous end plates were stripped free with curettes. Posterior marginal osteophytes were resected with thin foot plate Kerrison rongeurs. The medial aspects of the neural foramina were enlarged in a similar manner. Posterior longitudinal ligament was divided and resected as necessary to further the decompression. Once the decompressions were felt to be adequate at both levels, the disc spaces were sized. A 7 mm ACIS ProTi lordotic/medium Spacer was chosen for C5-C6. An 8 mm ACIS ProTi lordotic/medium Spacer was chosen for C6- C7. The Spacers were packed with morselized autograft obtained from the osteophy tectomy portions of the procedure. The Spacers were sequentially placed within the C5-C6 and C6-C7 interspaces while in-line cervical traction was applied via the Lopez-Wells tongs. Once the Spacers were felt to be in good position, a Synthes Vectra plate of the desired size was chosen. The plate was bent to match the curvature of the patient's cervical spine utilizing the plate paz. The plate was secured to the C5, C6 and C7 vertebral bodies with bilateral 4 mm x 14 mm self-drilling screws. Final screw tightening was performed, and the locking mechanisms within the plate were noted to engage the screws at each site. The construct was inspected and felt to be in good position and secure. The wound was copiously irrigated with sterile saline and antibiotic irrigation. Hemostasis was ensured with the bipolar electrocautery. Wound closure was performed in multiple layers with 2-0 Vicryl Plus simple interrupted closure of the platysma and deep dermis as separate layers. Final skin closure was performed with 4-0 Vicryl Plus in a running subcuticular pattern. Steri-Strips were applied and a sterile dressing was placed. The patient was released from the Lopez-Wells tongs and fit in a [place] collar. He was transferred onto the Recovery Room cart in the supine position. He was extubated without incident. The patient tolerated the procedure well. All sponge, needle, and instrument counts were correct at the completion of the procedure.
== END 2019-12-02 18:03 | disposition home or self-care (01) ==
LOC: MEDSURG 10:24
PROVIDERS: Internal Medicine; Admitting Provider Specialist; Family Provider Family Medicine; PCP Family Medicine; Visit Provider Specialist
PROC: 0RB30ZZ Excision of Cervical Vertebral Disc, Open Approach (ICD-10-PCS; CPT 22551; principal; 2019-12-02 07:00)
DX: M50.022 Cervical disc disorder at C5-C6 level with myelopathy (principal); M43.12 Spondylolisthesis, cervical region; R00.0 Tachycardia, unspecified; I10 Essential (primary) hypertension; Z87.891 Personal history of nicotine dependence
CPT/HCPCS: 22551; 22552; 22853 ×2; 12345; 36415; 51702; 72020; 72040; 80053; 83735; 84443; 85025; 88304; 93005; 96360; 96361; 96374; 96375; 97161; 97530; C1713; G0378; J0360; J0690; J1100; J1885; J2001; J2710; J3010; J3490; J7030; L0172; L0174

== ENCOUNTER 2019-12-16 12:45 | Outpatient (CLI) | payer MEDICARE, SELFPAY ==
--- NOTE | 2019-12-16 13:03 | XR_ITS ---
WS: [id number] CERVICAL SPINE 2 VIEWS HISTORY: s/p cervical spinal fusion COMPARISON: 12/02/2019 Straightening of the normal cervical lordosis. Patient has undergone anterior cervical fusion from C5 through C7. Interbody spacers are unchanged in position. No lucency around the hardware or fracture. Bony osteophyte extends posteriorly from C6 by 3 mm. Hypertrophic osteophytes stent anteriorly from C4. Numerous clips in the soft tissues of the LEFT neck. XR/XR cervical spine 3V* [id number] IMPRESSION: Stable anterior cervical fusion with interbody spacers from C5 through C7. No c omplications are apparent.
== END 2019-12-16 12:46 | disposition home or self-care (01) ==
LOC: RADWPI 12:50
PROVIDERS: Family Provider Family Medicine; PCP Family Medicine; Visit Provider Licensed Practical Nurse
DX: Z98.1 Arthrodesis status (principal)
CPT/HCPCS: 72040

== ENCOUNTER 2020-01-06 08:59 | Outpatient (CLI) | payer MEDICARE, SELFPAY ==
--- NOTE | 2020-01-06 09:06 | XR_ITS ---
WS: [id number] CERVICAL SPINE TECHNIQUE: 3 views of the cervical spine CLINICAL INFORMATION: s/p cervical spinal fusion COMPARISON: None. FINDINGS: Straightening of the normal cervical lordosis. Anterior interbody cervical fusion C5-C7 with interbod y fusion grafts. Disc space narrowing worse at C4-5. Prevertebral soft tissue edema postoperative. XR/XR cervical spine 3V* [id number] IMPRESSION: Straightening of the normal cervical lordosis with normal postoperative ACDF C5 -C7
== END 2020-01-06 09:00 | disposition home or self-care (01) ==
PROVIDERS: Family Provider Family Medicine; PCP Family Medicine; Visit Provider Licensed Practical Nurse
DX: Z98.1 Arthrodesis status (principal); M43.22 Fusion of spine, cervical region
CPT/HCPCS: 72040

== ENCOUNTER 2020-01-28 11:50 | Outpatient (CLI) | payer MEDICARE, SELFPAY ==
--- NOTE | 2020-01-28 11:56 | CT_ITS ---
WS: [id number] CT CERVICAL SPINE HISTORY: s/p cervical spinal fusion TECHNIQUE: Contiguous 2.5 mm axial imaging performed through the entire cervical spine. Sagittal and coronal reformats also performed. All CT scans at [facility] use at least one of these do se optimization techniques: automated exposure control; mA and/or kV adjustment per patient size (inc ludes targeted exams where dose is matched to clinical indication); or iterative reconstruction. DLP: 1703.25 mGycm COMPARISON: 05/10/2019 Prior anterior cervical fusion from C5 through C7. Interbody spacers at C5-6 and C6-7. No lucency radha und the hardware. No ankylosis at this time. No fractures. Mild disc space narrowing at C4-5 and C7- T1. C2-C3: Normal. C3-C4: Shallow central disc protrusion. C4-C5: Very mild osteophytic ridging with mild LEFT foraminal narrowing. C5-C6: Diffuse osteophytic ridging with mild bilateral foraminal stenosis. C6-C7: Diffuse osteophytic ridging with [id number] bilateral foraminal stenosis, RIGHT greater than LEFT. C7-T1: Diffuse osteophytic ridging with moderate bilateral foraminal stenosis. Soft tissues are normal. Lung apices are clear. CT/CT cervical spin wo con* [id number] IMPRESSION: 1. Anterior cervical fusion from C5 to C7 with interbody spacers is intact wit h no complications. 2. Multilevel mild to moderate foraminal stenosis as above.
== END 2020-01-28 11:51 | disposition home or self-care (01) ==
LOC: RADWPI 11:54
PROVIDERS: PCP Family Medicine; Visit Provider Specialist
DX: Z98.1 Arthrodesis status (principal); M43.22 Fusion of spine, cervical region; M48.02 Spinal stenosis, cervical region
CPT/HCPCS: 72125

== ENCOUNTER 2020-02-24 10:03 | Emergency (ER) | payer MEDICARE, SELFPAY ==
[2020-02-24 10:07] VITALS: BP 161/103; PULSE 109; RESP 19; TEMP 36.8; O2SAT 96; BMI 27.0
--- NOTE | 2020-02-24 10:23 | W.ED.NECK ---
HPI - Neck Pain/Injury General: Chief Complaint: Neck Pain/Injury Stated Complaint: FALL NECK PAIN Time Seen by Provider: 02/24/20 10:11 History of Present Illness: HPI Narrative: Patient 59-year-old male who comes to the ED with neck pain due to fall. Past medical history of cervical spine fusion in December, hypertension, hypercholesterolemia, restless leg syndrome and GERD. Patient says today prior to arrival he was helping his friend unload something in the back of his truck and he was standing on the bed of the truck tripped over an object and fell 4 feet to the ground. He says he landed on his back and he did hit the back of his head. He says he saw stars but did not lose consciousness. All his pain now is in his neck. Patient is concerned that he might of messed something up in his neck. Associated symptoms: Denies headache(s) or nausea Review of Systems Const: Denies: fever(s), chills or fatigue Eyes: Denies: change in vision or eye discomfort ENMT: Denies: throat pain, odynophagia, nasal discharge or nasal congestion Card: Denies: chest pain, palpitations, edema, swelling of feet/ankles, dyspnea on exertion or orthopnea Resp: Denies: dyspnea, productive cough or non-productive cough GI: Denies: abdominal pain, nausea, vomiting, diarrhea, constipation or hematochezia : Denies: flank pain, difficulty urinating, dysuria or hematuria Musc: Reports: neck pain; Denies: back pain or extremity swelling Skin/Breast: Denies: rash or new lesions Neuro: Denies: headache(s), numbness in extremities or weakness in extremities PFS ED PFSH: Medical History Chronic back pain Chronic tension headache CPAP (continuous positive airway pressure) dependence Degenerative disc disease, cervical Depression Enrolled in chronic care management Erectile dysfunction GERD (gastroesophageal reflux disease) Hearing loss Hoarseness Hypercholesterolemia Iron deficiency anemia Migraine with aura, not intractable, without status migrainosus Opioid dependence, in remission Pulmonary emphysema QT prolongation Restless legs syndrome Testosterone deficiency Surgical History History of cervical spinal surgery 12/02/2019 C5-C6, C6-C7 ACDFF History of ear surgery History of knee surgery History of surgery on upper extremity S/P hernia surgery Family History Mother Cancer Sister Diabetes Father Heart attack Grandfather Heart attack Social History Smoking and tobacco status: current some day smoker Alcohol intake: never Household members: spouse Marital status: Current occupational status: disabled History of recent travel: No Physical Exam Narrative: EXAM NARRATIVE: Patient is a 59-year-old man that is sitting on the exam bed and wearing c-collar when I entered the room. Const: COMMON NORMALS: patient oriented x3 and alert GENERAL APPEARANCE: cooperative and comfortable HENMT: COMMON NORMALS: normocephalic HEAD & SCALP: normocephalic MOUTH: Normal oral and palatal mucosa present THROAT: posterior oropharynx normal and uvula midline Neck/C-Spine: COMMON NORMALS: supple GENERAL: Yes normal visual inspection CERVICAL SPINE: Yes Cervical spine tenderness Resp: COMMON NORMALS: normal respiratory effort, No retractions, No use of accessory muscles and clear to auscultation bilaterally AUSCULTATION: clear to auscultation bilaterally Cardio: COMMON NORMALS: regular rate, regular rhythm, S1 normal heart sound present, S2 normal heart sound present, No gallops present (Cardio), No clicks present (Cardio), No murmurs present (Cardio) and Peripheral pulses 2+ throughout RATE: regular rate RHYTHM: regular rhythm HEART SOUNDS: S1 normal heart sound present and S2 normal heart sound present PERIPHERAL PULSES: Peripheral pulses 2+ throughout GI: COMMON NORMALS: Normal to inspection, nondistended, normoactive bowel sounds present, Soft to palpation, non-tender and no masses PALPATION: Yes Soft to palpation : COMMON NORMALS: Yes no CVA tenderness BLADDER/KIDNEY EXAM: Yes no CVA tenderness Back/Pelvis: COMMON NORMALS: no CVA tenderness Extremity: COMMON NORMALS: normal to inspection Neuro: COMMON NORMALS: patient oriented x3, CN's II-XII intact bilaterally, moves all extremities, no focal motor deficits and no sensory deficits noted SENSORIUM/ORIENTATION: Yes alert COORDINATION/BALANCE: [id number] test normal SPEECH: speech normal SENSORY EXAM: Yes extremities (intact) MOTOR EXAM: 5/5 motor strength present throughout and No Pronator motor function present COORDINATION: [id number] test normal Skin: COMMON NORMALS: no rashes or lesions noted GENERAL SKIN EXAM: no rashes or lesions noted and dry skin Course Vital Signs: Vital signs: Vital Signs Temperature 98.0 F 02/24/20 11:44 Pulse Rate 97 02/24/20 11:44 Respiratory Rate 18 02/24/20 11:44 Blood Pressure 139/97 02/24/20 11:44 Pulse Oximetry 95 02/24/20 11:44 MDM - Neck Pain/Injury MDM Narrative: Medical decision making narrative: Patient is a 59-year-old male who comes into the ED with neck pain after having a fall where he hit the back of his head and neck. Patient recently had cervical spine fusion surgery back in December. Physical exam showed some cervical spine tenderness and neuro exam was normal showing no deficits. CT of the head showed no acute findings. CT of the cervical spine showed no acute fractures and stable cervical spine fusion. Patient was discharged and told to follow-up with PCP in 7 to 10 days for reevaluation. Patient understood and agreed with plan. Imaging Data^: CT Head: Attestation: I personally reviewed and interpreted this imaging study as follows: Radiologist's impression: [address] [address] [address] Scan Report Signed Patient: Bull Combs Unit #: [id number] : 1960 Age/Sex: 59 / M ADM Date: 02/24/20 Loc: ER Room/Bed: Attending Dr: Ordering Provider/Ordering MD: Demetrius Morgan Date of Service: 02/24/20 Procedure(s): CT head wo con* [id number] Accession Number(s): [id number] Report Number: [id number] WS: [id number] CT head wo con* [id number] REASON FOR EXAM: fall and hit head IV CONTRAST ADMINISTERED: None. TOTAL EXAM DLP: 799.[address] scans at [facility] use at least one of these dose optimization techniques: automated exposure control; mA and/or kV adjustment per patient size (includes targeted exams where dose is matched to clinical indication); or iterative reconstruction. FINDINGS: And white matter interfaces were normal. Comparisons were made to a previous exam of February 27, 2018. The sulci show no evidence of hemorrhage, infarction, or mass effect. The ventricles are all normal not displaced. The prominent pineal gland is seen of no significance. The posterior fossa show normal matthew and cerebellum. The paranasal sinuses were normal. The orbits show no abnormalities. Temporal air cells were normal. The calvarium show no fractures. CT/CT head wo con* [id number] IMPRESSION: Normal CT of the brain Dictated By: Eligio Enriquez DO Signed By: Eligio Enriquez DO Signed Date/Time: 02/24/20 1106 DD/ [address]: Attestation: I personally reviewed and interpreted this imaging study as follows: Radiologist's impression: [place] [address] CT Scan Report Signed Patient: Bull Combs Unit #: [id number] : 1960 Age/Sex: 59 / M ADM Date: 02/24/20 Loc: ER Room/Bed: Attending Dr: Ordering Provider/Ordering MD: Demetrius Morgan Date of Service: 02/24/20 Procedure(s): CT cervical spin wo con* [id number] Accession Number(s): [id number] Report Number: [id number] WS: [id number] CT cervical spin wo con* [id number] REASON FOR EXAM: fall hit head, neck pain IV CONTRAST ADMINISTERED: None. TOTAL EXAM DLP: 582.[address] scans at [facility] use at least one of these dose optimization techniques: automated exposure control; mA and/or kV adjustment per patient size (includes targeted exams where dose is matched to clinical indication); or iterative reconstruction. FINDINGS: Stable fusion anteriorly C5-C6-C7 with intraspinal fusion. The craniocervical junction anatomy was normal. The C1-C2 normal anatomical findings. C2-C3 show no fractures or dislocation. Exiting foramina were normal. No disc bulge or herniation. No spinal stenosis. C3-C4: Shows no fractures or dislocation. Exiting foramina were normal. No disc bulge or herniation. No spinal stenosis. C4-C5: Normal vertebral alignment. Exiting foramina normal. No disc bulge or herniation. No spinal stenosis. The C5-C6-C7 show normal perfusion and no fractures. CT/CT cervical spin wo con* [id number] IMPRESSION: Stable fusion anteriorly C5-C6-C7 with intraspinal fusion There was no fractures or dislocation of the cervical spine. Dictated By: Eligio Enriquez DO Signed By: Eligio Enriquez DO Signed Date/Time: 02/24/201108 DD/ 05 Discharge Plan Discharge Patient Disposition: Home, Self-Care Clinical Impression: Neck pain Fall Qualifiers: Encounter type: initial encounter Qualified Code(s): W19.XXXA - Unspecified fall, initial encounter Condition: Stable Prescriptions: No Action omega 0-fcg-nuj-fish oil [Fish Oil] 1,000 mg (120 mg-180 mg) capsule 2 cap PO BID RF: 0 epinephrine 0.3 mg/0.3 mL auto-injector 0.3 mg IM ONCE Qty: 2 RF: 0 ropinirole 1 mg tablet 1 mg PO DAILY Qty: 30 RF: 5 ropinirole 5 mg tablet 5 mg PO .po q hs Qty: 30 RF: 5 budesonide-formoterol [Symbicort] 160-4.5 mcg/actuation HFA aerosol inhaler 2 puff INHALATION BID Qty: 10.2 RF: 0 Combivent Respimat 20-100 mcg/actuation mist 1 puff INHALATION Q6H Qty: 4 RF: 1 ascorbic acid (vitamin C) 500 mg capsule 500 mg PO DAILY RF: 0 trazodone 100 mg tablet 100 mg PO DAILY RF: 0 omeprazole 20 mg capsule,delayed release(DR/EC) 20 mg PO DAILY Qty: 90 RF: 1 (DME) BD Eclipse Luer-Errol 3 mL 23 x 1 syringe See Rx Instructions .ROUTE .MEDSUPPLY Qty: 50 RF: 0 amitriptyline 10 mg tablet 20 mg PO .at bedtime Qty: 60 RF: 0 testosterone cypionate 200 mg/mL kit 200 mg IM .COMPLEX Qty: 2.5 RF: 0 sumatriptan succinate [Imitrex] 100 mg tablet See Rx Instructions PO .COMPLEX Qty: 9 RF: 3 montelukast [Singulair] 10 mg tablet 10 mg PO DAILY Qty: 90 RF: 2 atenolol 25 mg tablet 25 mg PO DAILY Qty: 30 RF: 2 atorvastatin 20 mg tablet 20 mg PO .at bedtime Qty: 21 RF: 0 Cymbalta 60 mg Capsule,Delayed Release(Dr/Ec) 60 mg PO BID RF: 0 Discharge Orders: Discharge Order (Routine); Ordered 02/24/20 Ordered By: Demetrius Morgan Referrals: Christi Zurita DO [Primary Care Provider] - Discharge Diet: Regular Discharge Activity: Increase activity as tolerated Patient Instructions: Fall Prevention for Older Adults (ED), Cervical Sprain (ED) Activity Restrictions/Additional Instructions: Call your PCP and set up a follow-up appointment in 7 to 10 days for reevaluation. Apply heat or cold pack on neck to help with symptoms. Rest for the next couple days and avoid strenuous activity. Take ibuprofen for pain. 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
--- NOTE | 2020-02-24 10:35 | CT_ITS ---
WS: [id number] CT cervical spin wo con* [id number] REASON FOR EXAM: fall hit head, neck pain IV CONTRAST ADMINISTERED: None. TOTAL EXAM DLP: 582.[address] scans at [facility] use at least one of these dose optimization techniques: automat ed exposure control; mA and/or kV adjustment per patient size (includes targeted exams where dose is matched to clinical indication); or iterative reconstruction. FINDINGS: Stable fusion anteriorly C5-C6-C7 with intraspinal fusion. The craniocervical junction anatomy was normal. The C1-C2 normal anatomical findings. C2-C3 show no fractures or dislocation. Exiting foramina were normal. No disc bulge or herniation. No spinal stenosis. C3-C4: Shows no fractures or dislocation. Exiting foramina were normal. No disc bulge or herniation. No spinal stenosis. C4-C5: Normal vertebral alignment. Exiting foramina normal. No disc bulge or herniation. No spinal st enosis. The C5-C6-C7 show normal perfusion and no fractures. CT/CT cervical spin wo con* [id number] IMPRESSION: Stable fusion anteriorly C5-C6-C7 with intraspinal fusion There was no fractures or dislocation of the cervical spine.
--- NOTE | 2020-02-24 10:35 | CT_ITS ---
WS: [id number] CT head wo con* [id number] REASON FOR EXAM: fall and hit head IV CONTRAST ADMINISTERED: None. TOTAL EXAM DLP: 799.[address] scans at [facility] use at least one of these dose optimization techniques: automat ed exposure control; mA and/or kV adjustment per patient size (includes targeted exams where dose is matched to clinical indication); or iterative reconstruction. FINDINGS: And white matter interfaces were normal. Comparisons were made to a previous exam of February 092017. The sulci show no evidence of hemorrhage, infarction, or mass effect. The ventricles are all normal not displaced. The prominent pineal gland is seen of no significance. The posterior fossa show normal matthew and cerebellum. The paranasal sinuses were normal. The orbits show no abnormalities. Temporal air cells were normal. The calvarium show no fractures. CT/CT head wo con* [id number] IMPRESSION: Normal CT of the brain
[2020-02-24] MEDS: ketorolac 60 mg/2 mL INJ IM (11:01)
[2020-02-24 11:32] VITALS: BP 158/98; PULSE 88; RESP 18; O2SAT 95
[2020-02-24 11:44] VITALS: BP 139/97; PULSE 97; RESP 18; TEMP 36.7; O2SAT 95
== END 2020-02-24 11:47 | disposition home or self-care (01) ==
PROVIDERS: Emergency Provider Physician Assistant; PCP Family Medicine
DX: M54.2 Cervicalgia (principal); F17.210 Nicotine dependence, cigarettes, uncomplicated
CPT/HCPCS: 12345; 70450; 72125; 96372; 99281; 99283; J1885

== ENCOUNTER 2020-02-27 07:42 | Outpatient (CLI) | payer MEDICARE, SELFPAY ==
--- NOTE | 2020-02-27 12:49 | PFTS_ITS ---
Date of Study:02/27/20 Date of Dictation: MECHANICS: Forced vital capacity (FVC) is normal. Forced expiratory volume in one second (FEV1) is normal. FEV1/FVC is normal. FLOW VOLUME LOOP: Normal. LUNG VOLUMES: Not performed DIFFUSING CAPACITY FOR CARBON MONOXIDE: Not performed INTERPRETATION: Spirometry is normal. MTDD
== END 2020-02-27 07:43 | disposition home or self-care (01) ==
LOC: RT 07:43
PROVIDERS: PCP Family Medicine; Visit Provider Family Medicine
DX: R06.2 Wheezing (principal)
CPT/HCPCS: 94010

== ENCOUNTER → 2020-03-23 07:57 | Outpatient (BNVA) | payer MEDICARE, SELFPAY | PROVIDERS: PCP Family Medicine; Visit Provider Psychiatry & Neurology Psychiatry | DX: F33.2 Major depressive disorder, recurrent severe without psychotic features (principal); F15.21 Other stimulant dependence, in remission | CPT/HCPCS: 99214 ==

== ENCOUNTER → 2020-03-30 09:49 | Outpatient (BNVA) | payer MEDICARE, SELFPAY | PROVIDERS: PCP Family Medicine; Visit Provider Family Medicine | DX: I10 Essential (primary) hypertension (principal); E34.9 Endocrine disorder, unspecified; R35.1 Nocturia; F17.219 Nicotine dependence, cigarettes, with unspecified nicotine-induced disorders | CPT/HCPCS: 80053; 80061; 82044; 84153; 84403; 85025 ==

== ENCOUNTER 2020-04-07 20:00 | Outpatient (CLI) | payer MEDICARE, SELFPAY | END 2020-04-07 20:01 | disposition home or self-care (01) | LOC: SLEEP 04-08 10:14 | PROVIDERS: PCP Family Medicine; Visit Provider Family Medicine | DX: G47.30 Sleep apnea, unspecified (principal) | CPT/HCPCS: 95811 ==

== ENCOUNTER 2020-04-21 09:01 | Outpatient (CLI) | payer MEDICARE, SELFPAY ==
[2020-04-21 10:06] LABS: Free T4 Free Thyroxine 0.85 ng/dL (0.82-1.77)
[2020-04-23 16:54] LABS: Alternaria Alternata (M6) Ige <0.10 kU/L; Alternaria Class 0; Cat Dander (E1) Ige <0.10 kU/L; Cat Dander Class 0; Common Ragweed (Short) (W1) Ig <0.10 kU/L; D. Farinae Class 0; Dermatophagoides Class 0; Dermatophagoides Farinae (D2) <0.10 kU/L; Dermatophagoides Pteronyssinus <0.10 kU/L; Dog Dander (E5) Ige <0.10 kU/L; Dog Dander Class 0; Elm (T8) Ige <0.10 kU/L; Elm Class 0; English Plantain (W9) Ige <0.10 kU/L; English Plantain Class 0; House Dust (Greer) (H1) Ige <0.10 kU/L; House Dust (Hollister- Stier) <0.10 kU/L; House Dust Class 0; Immunoglobulin E 6 kU/L (<OR=114); Lamb'S Quarters (Goose Foot) <0.10 kU/L; Lamb'S Quarters Class 0; Maple (Box Elder) (T1) Ige <0.10 kU/L; Maple Class 0; Mucor Racemosus Class 0; Oak (T7) Ige <0.10 kU/L; Oak Class 0; Penicillium Class 0; Penicillium Notatum (M1) Ige <0.10 kU/L; Ragweeed Class 0; Rough Marsh Elder (W16) Ige <0.10 kU/L; Rough Marsh Elder Class 0
[2020-04-23 18:49] LABS: Aspergillus Fumigatus, Igg Ab, 4.5 mg/L (<=102)
[2020-04-24 17:14] LABS: Bermuda Class 0; Bermuda Grass (G2) Ige <0.10 kU/L; Johnson Grass (G10) Ige <0.10 kU/L; Johnson Grass Cl 0; June Grass Class 0; June Grass(Kentucky Blue) (G8) <0.10 kU/L; Meadow Fescue (G4) Ige <0.10 kU/L; Meadow Fescue Class 0; Orchard Grass (Cocksfoot) (G3) <0.10 kU/L; Perennial Rye Grass (G5) Ige <0.10 kU/L; Perennial Rye Grass Class 0; Sweet Vernal Class 0; Sweet Vernal Grass (G1) Ige <0.10 kU/L; Timothy Grass (G6) Ige <0.10 kU/L; Timothy Grass Class 0
== END 2020-04-21 09:02 | disposition home or self-care (01) ==
PROVIDERS: PCP Family Medicine; Visit Provider Internal Medicine Pulmonary Disease
DX: R49.0 Dysphonia (principal); R06.02 Shortness of breath; R05 Cough; J44.9 Chronic obstructive pulmonary disease, unspecified; K21.9 Gastro-esophageal reflux disease without esophagitis; R06.2 Wheezing
CPT/HCPCS: 82043; 82785; 84439; 84443; 86003

== ENCOUNTER 2020-04-22 11:34 | Outpatient (CLI) | payer MEDICARE, SELFPAY ==
--- NOTE | 2020-04-22 11:30 | CT_ITS ---
WS: [id number] CT scan of the chest without IV contrast, additional two-dimensional coronal and sagittal reconstruct ion was performed. 04/22/2020 Clinical Data: copd Comparison: None. DLP: 588.[address] scans at [facility] use at least one of these dose optimization techniques: automat ed exposure control; mA and/or kV adjustment per patient size (includes targeted exams where dose is matched to clinical indication); or iterative reconstruction. Findings: There is an anterior cervical disc fusion. No nodules, masses or effusions are seen. The heart size is normal with no pericardial effusion. The pulmonary arterial system and thoracic aorta demonstrate no abnormalities or dilatations. The trachea bifurcates normally into the bronchi. There is no axillary or significant mediastinal adenopathy. The upper abdomen shows no abnormalities. CT/CT chest wo con [id number] Impression: Negative for acute cardiopulmonary disease.
--- NOTE | 2020-04-22 11:30 | CT_ITS ---
WS: [id number] CT scan of the neck with IV contrast. Additional two-dimensional coronal and sagittal reconstruction was performed. 04/22/2020 Clinical Data: hoarseness Comparison: None. DLP: 2951.[address] scans at [facility] use at least one of these dose optimization techniques: automat ed exposure control; mA and/or kV adjustment per patient size (includes targeted exams where dose is matched to clinical indication); or iterative reconstruction. Findings: No lymphadenopathy is noted. The salivary glands are unremarkable. There is no prevertebral soft tiss ue swelling. The larynx is symmetric. The thyroid gland shows normal enhancement. The floor of the mo uth and parapharyngeal spaces are normal. The oral cavity is unremarkable. The patient had an anterio r cervical disc fusion at C5-C7 with intervertebral disc spacers at C5-C6 and C6-C7. There are surgic al clips at the left mandibular angle. The carotid arteries bifurcate normally. The lung apices show no abnormalities. The portions of the i ntracranial circulation which are seen demonstrate no abnormalities. No erosion of the skull or skull base is seen. Impression. 1. Negative for lymphadenopathy or abnormal neck mass. 2. Surgical clips at left mandibular angle. 3. Anterior cervical disc fusion C5-C7. 1
[2020-04-22] MEDS: iohexol 300 mg/mL 100 mL Btl IV (12:18)
== END 2020-04-22 11:35 | disposition home or self-care (01) ==
LOC: RADWPI 11:40
PROVIDERS: PCP Family Medicine; Visit Provider Internal Medicine Pulmonary Disease
DX: J44.9 Chronic obstructive pulmonary disease, unspecified (principal); R49.0 Dysphonia; M43.22 Fusion of spine, cervical region
CPT/HCPCS: 70491; 71250; Q9967

== ENCOUNTER 2020-04-27 12:26 | Outpatient (CLI) | payer MEDICARE, SELFPAY ==
--- NOTE | 2020-04-27 13:16 | PFTS_ITS ---
Date of Study:04/27/20 Date of Dictation: MECHANICS: Forced vital capacity (FVC) is normal. Forced expiratory volume in one second (FEV1) is normal. FEV1/FVC is normal. FLOW VOLUME LOOP: Normal. LUNG VOLUMES: Total lung capacity (TLC) is normal. Residual volume (RV) is elevated. DIFFUSING CAPACITY FOR CARBON MONOXIDE: Mild reduced. INTERPRETATION: The spirometry is normal. There is elevation of residual volume. Given the patient's significant history of smoking this could represent small airways disease and air trapping. Gas exchange (DLCO) is mildly reduced. MTDD
== END 2020-04-27 12:27 | disposition home or self-care (01) ==
LOC: RT 12:27
PROVIDERS: PCP Family Medicine; Visit Provider Internal Medicine Pulmonary Disease
DX: J44.9 Chronic obstructive pulmonary disease, unspecified (principal); R06.2 Wheezing
CPT/HCPCS: 94010; 94726; 94729

== ENCOUNTER → 2020-05-22 09:15 | Outpatient (BNVA) | payer MEDICARE, SELFPAY | PROVIDERS: PCP Family Medicine; Visit Provider Internal Medicine | DX: Z11.59 Encounter for screening for other viral diseases (principal) | CPT/HCPCS: 87635 ==

== ENCOUNTER 2020-05-25 08:56 | Day surgery (SDC) | payer MEDICARE, SELFPAY ==
[2020-05-21 13:58] VITALS: BMI 25.5
[2020-05-25 09:32] VITALS: BP 116/84; PULSE 78; RESP 18; TEMP 36.5; O2SAT 98; BMI 25.5
[2020-05-25] MEDS: sodium chloride 0.9% 1,000 ML 30 ML IV (09:51)
--- NOTE | 2020-05-25 10:08 | W.PM.OPSUD ---
Surgery/Procedure H&P Update DATE OF PROCEDURE: May 25, 2020 DATE H&P PERFORMED: 05/19/20 PREOP DIAGNOSIS: sc PLANNED PROCEDURE: Operation Date: 05/25/20 10:00 Proposed Procedures p Colonoscopy 93000 Z12.11(Not Applicable) - Jacques Mendez MD
--- NOTE | 2020-05-25 10:13 | ANES.PREANE2 ---
Pre-Anesthetic Assessment Pre-Anesthetic Assessment: Height/Weight: Height 1.75 m Weight 78.471 kg Temp Pulse Resp BP Pulse Ox 97.7 F 78 18 116/84 98 05/25/20 09:32 05/25/20 09:32 05/25/20 09:32 05/25/20 09:32 05/25/20 09:32 Preop Diagnosis: sc Proposed Procedure: Operation Date: 05/25/20 10:00 Proposed Procedures p Colonoscopy 64879 Z12.11(Not Applicable) - Jacques Mendez MD Familial anesthetic complications: None Was Beta Kourtney taken within 24 hours: Yes Last intake: Intake Last Liquid Date 05/24/20 Last Liquid Time 23:00 Last Solid Date 05/23/20 Last Solid Time 20:00 Social: Social History: Tobacco Comment: hx meth abuse Exam: Pre-Anes Outpt Exam: alert, oriented x 3, clear to auscultation bilaterally and regular rate & rhythm Airway: Cervical ROM: WNL MP: 2 Dentition: Full Pulmonary: Pulmonary: COPD and Sleep apnea (CPAP) Comments: deviated nasal septum, hypertrophy CV/HEM: CV/HEM: HTN GI: GI: GERD Musc/skel: Comments: acdf C5-6, C6-7 Anesthetic Plan: ASA status: 3 Anesthesia: MAC Risk of > 500 ml blood loss (7ml/kg in children): No Meds/Allergies Current Medications: Current Medications Generic Name Dose Route Start Last Admin Trade Name Freq PRN Reason Stop Dose Admin Sodium Chloride 1,000 mls @ 30 ml s/hr 05/25/20 09:15 05/25/20 09:51 Sodium Chloride 0.9% IV 30 mls/hr .Q24H RICH Administration PFSH Anesthesia PFSH: Medical History (Updated 05/19/20 @ 09:49 by Jacques Mendez MD) Chronic back pain Chronic tension headache COPD (chronic obstructive pulmonary disease) CPAP (continuous positive airway pressure) dependence Degenerative disc disease, cervical Enrolled in chronic care management Erectile dysfunction GERD (gastroesophageal reflux disease) Hearing loss Hoarseness Hypercholesterolemia Iron deficiency anemia Migraine with aura, not intractable, without status migrainosus Opioid dependence, in remission Pulmonary emphysema QT prolongation Restless legs syndrome Testosterone deficiency Surgical History History of cervical spinal surgery 12/02/2019 C5-C6, C6-C7 ACDFF History of ear surgery History of knee surgery History of surgery on upper extremity S/P hernia surgery Family History Mother Cancer Sister Diabetes Father Heart attack Grandfather Heart attack Social History Smoking and tobacco status: current every day smoker cigarettes Packs smoked per day: 0.5 Years cigarettes smoked: 52 [ Other cigarette details: 1 PPD x 52 Year History ] Quit status (tobacco): considering quitting Alcohol intake: never Lives independently: Yes Household members: spouse Marital status: Current occupational status: disabled History of recent travel: No Current gender identity: Male Data Anesthesia Cardiac Studies: No Data to Display
--- NOTE | 2020-05-25 10:24 | W.PM.OPSUD ---
Surgery/Procedure H&P Update DATE OF PROCEDURE: May 25, 2020 DATE H&P PERFORMED: 05/19/20 PREOP DIAGNOSIS: sc PLANNED PROCEDURE: Operation Date: 05/25/20 10:00 Proposed Procedures p Colonoscopy 26333 Z12.11(Not Applicable) - Jacques Mendez MD
[2020-05-25 10:42] VITALS: BP 96/59; PULSE 72; RESP 16; TEMP 36.3; O2SAT 93
[2020-05-25 10:51] VITALS: BP 106/65; PULSE 70; RESP 18; O2SAT 97
--- NOTE | 2020-05-25 10:51 | ANE.PACU2 ---
Inpatient post-anesthesia follow up: Airway intact: Yes Vital signs: Temperature 97.4 F Pulse Rate 72 Respiratory Rate 16 Blood Pressure 96/59 Pulse Oximetry 93 Oxygen Delivery Me thod Nasal Cannula Oxygen Flow Rate 3 Fraction of Inspir ed Oxygen Hydration adequate: Yes Nausea and vomiting: No Pain level: 1 Mental status: Baseline
== END 2020-05-25 11:20 | disposition home or self-care (01) ==
PROVIDERS: PCP Family Medicine; Visit Provider Internal Medicine
PROC: 0DJD8ZZ Inspection of Lower Intestinal Tract, Via Natural or Artificial Opening Endoscopic (ICD-10-PCS; CPT 45378; principal; 2020-05-25 10:00)
DX: Z12.11 Encounter for screening for malignant neoplasm of colon (principal); J44.9 Chronic obstructive pulmonary disease, unspecified; G47.33 Obstructive sleep apnea (adult) (pediatric); E78.00 Pure hypercholesterolemia, unspecified; I10 Essential (primary) hypertension; F17.210 Nicotine dependence, cigarettes, uncomplicated; Z99.89 Dependence on other enabling machines and devices
CPT/HCPCS: 12345; G0121; J2704; J7030

== ENCOUNTER → 2020-05-27 09:12 | Outpatient (BNVA) | payer MEDICARE, SELFPAY | PROVIDERS: PCP Family Medicine; Visit Provider Psychiatry & Neurology Psychiatry | DX: F33.2 Major depressive disorder, recurrent severe without psychotic features (principal); F17.219 Nicotine dependence, cigarettes, with unspecified nicotine-induced disorders; F15.21 Other stimulant dependence, in remission | CPT/HCPCS: 99213 ==

== ENCOUNTER → 2020-07-23 08:28 | Outpatient (BNVA) | payer MEDICARE, SELFPAY | PROVIDERS: PCP Family Medicine; Visit Provider Psychiatry & Neurology Psychiatry | DX: F33.2 Major depressive disorder, recurrent severe without psychotic features (principal); F15.21 Other stimulant dependence, in remission; F17.219 Nicotine dependence, cigarettes, with unspecified nicotine-induced disorders; F12.20 Cannabis dependence, uncomplicated; F17.200 Nicotine dependence, unspecified, uncomplicated | CPT/HCPCS: 99214 ==

== ENCOUNTER 2020-11-10 10:26 | Inpatient (IN) | payer MEDICARE, SELFPAY ==
[2020-11-10] VITALS (19 sets, daily range): BP systolic 103–168; BP diastolic 61–105; PULSE 74–100; RESP 16–20; TEMP 35.9–37.2; O2SAT 90–99; BMI 23.6
[2020-11-10] MEDS: ondansetron 2 mg/ML SDV 2 mL 4 MG IVP ×2 (12:10→13:54)
[2020-11-10] MEDS: morphine 4 mg/mL SDV 1 mL 8 MG IVP (12:10)
--- NOTE | 2020-11-10 12:30 | W.ED.MALEGU ---
HPI - Male Genitourinary General: Chief complaint: Urogenital-Male Stated complaint: 3 day erection/painfull History of Present Illness: HPI Narrative: The patient is a 60-year-old male who presents to the emergency department with a 3-day history of penile erection. He is in a lot of pain at this moment. He has never had a history of priapism. He is here to be evaluated for this. Onset (ago): day(s) (3) Duration: constant Location: penis Severity: severe Quality: aching Relieving factors: none Exacerbating factors: palpation Context: new medication (pentoxifylline) Associated symptoms: Deny discharge, dysuria, fevers/chills, hematuria, nausea, rash, urinary incontinence, urinary retention, mass or vomiting Review of Systems General: Reports: 10 or more systems reviewed and unremarkable except in HPI and below Const: Denies: fever(s), chills or body aches Eyes: Denies: change in vision or blurry vision ENMT: Denies: throat pain, enlarged tonsils, odynophagia, hoarseness, mouth pain or swelling of lips/tongue Card: Denies: palpitations, irregular heart rhythm, edema or swelling of feet/ankles Resp: Denies: dyspnea, productive cough or non-productive cough GI: Denies: nausea or vomiting : Denies: dysuria, urinary incontinence or hematuria Musc: Denies: neck pain, back pain or extremity swelling Skin/Breast: Denies: rash, pruritus or erythema Neuro: Denies: headache(s), numbness in extremities or weakness in extremities Endo: Denies: polyuria, polydipsia or tired all the time [facility] ED PFSH: Medical History Chronic back pain Chronic tension headache COPD (chronic obstructive pulmonary disease) CPAP (continuous positive airway pressure) dependence Degenerative disc disease, cervical Enrolled in chronic care management Erectile dysfunction GERD (gastroesophageal reflux disease) Hearing loss Hoarseness Hypercholesterolemia Iron deficiency anemia Migraine with aura, not intractable, without status migrainosus Opioid dependence, in remission Pulmonary emphysema QT prolongation Restless legs syndrome Testosterone deficiency Surgical History History of cervical spinal surgery 12/02/2019 C5-C6, C6-C7 ACDFF History of ear surgery History of knee surgery History of surgery on upper extremity S/P hernia surgery Family History Mother Cancer Sister Diabetes Father Heart attack Grandfather Heart attack Social History Smoking and tobacco status: current every day smoker cigarettes Packs smoked per day: 0.25 Years cigarettes smoked: 52 [ Other cigarette details: 1 PPD x 52 Year History ] Quit status (tobacco): considering quitting Second hand smoke exposure: Yes Smoking risk assessment/counseling performed?: Yes Alcohol intake: never Lives independently: Yes Household members: spouse Marital status: Current occupational status: disabled History of recent travel: No Current gender identity: Male Physical Exam Const: COMMON NORMALS: no acute distress, average body habitus, patient oriented x3, no limitations, healthy appearing, alert and well nourished Neck/C-Spine: COMMON NORMALS: no meningeal signs and no JVD Resp: COMMON NORMALS: normal respiratory effort, No retractions, No use of accessory muscles, clear to auscultation bilaterally and percussion normal AUSCULTATION: clear to auscultation bilaterally PERCUSSION: percussion normal Cardio: COMMON NORMALS: no JVD, regular rate, regular rhythm, S1 normal heart sound present, S2 normal heart sound present, No gallops present (Cardio), No clicks present (Cardio), No murmurs present (Cardio), No rub (Cardio) and Peripheral pulses 2+ throughout RATE: regular rate RHYTHM: regular rhythm HEART SOUNDS: S1 normal heart sound present and S2 normal heart sound present PERIPHERAL PULSES: Peripheral pulses 2+ throughout GI: COMMON NORMALS: Normal to inspection, nondistended, normoactive bowel sounds present, Soft to palpation, non-tender, No hepatosplenomegaly present, no masses and no bruits PALPATION: Yes Soft to palpation and Yes No hepatosplenomegaly present : PENIS: circumcised and other (Patient has a tender erection. No scrotal pain or swelling) Extremity: COMMON NORMALS: normal to inspection, full ROM, capillary refill normal, no calf tenderness and no pedal edema Neuro: COMMON NORMALS: patient oriented x3 SENSORIUM/ORIENTATION: Yes alert MENINGEAL SIGNS: Yes no meningeal signs Course Consultations: Consultation #1: Discussed the patient with Dr. Agustin, who will come to the emergency department to evaluate the patient and attempt to correct his symptoms. If it fails then he will take him to surgery. Time: 11:34 Vital Signs: Vital signs: Vital Signs Temperature 98.7 F 11/10/20 19:22 Pulse Rate 87 11/10/20 21:02 Respiratory Rate 18 11/10/20 19:22 Blood Pressure 117/70 11/10/20 19:22 Pulse Oximetry 95 11/10/20 21:02 MDM - Male MDM Narrative: Medical decision making narrative: 60-year-old male who presents with a 3-day history of priapism. He was evaluated in the emergency department by the urologist and attempts to correct it were not successful so he was taken to surgery. Medical Records: Attestation: I reviewed the patient's medical records. Lab Data: Attestation: I reviewed the patient's lab results. Labs: Lab Results 11/10/20 11/10/20 11/10/20 Range/Units 12:10 12:10 12:10 WBC 13.8 H (4.0-10.0) 10^3/ uL RBC 5.14 (4.1-5.3) 10^6/u L Hgb 16.2 (11.7-16.6) g/dL Hct 49.5 (42.0-52.0) % MCV 96.3 H (80-94) fL MCH 31.5 (28.0-34.0) pg MCHC 32.7 (30.0-36.0) g/dL RDW 12.6 (12.1-15.1) % Plt Count 316 (130-400) 10^3/c mm MPV 9.3 (7.4-10.4) fL Neut % (Auto) 77.7 % Lymph % (Auto) 10.8 % [place] % (Auto) 10.1 % Eos % (Auto) 0.4 % Baso % (Auto) 0.6 % Neut # (Auto) 10.69 H (1.8-7.7) 10^3/u L Lymph # (Auto) 1.5 (0.8-4.8) 10^3/u L [place] # (Auto) 1.4 H (0.2-0.9) 10^3/u L Eos # (Auto) 0.1 (0.0-0.8) 10^3/u L Baso # (Auto) 0.1 (0.0-0.1) 10^3/u L Nucleated RBC % (a uto) 0 % Nucleated RBCs # 0.0 /100WBC PT 11.60 L (12.1-14.9) SECO NDS INR 0.83 (0.8-1.2) Sodium 134 L (136-145) mmol/L Potassium 4.8 (3.5-5.1) mmol/L Chloride 97 L (98-107) mmol/L Carbon Dioxide 29 (22-29) mmol/L Anion Gap 12.8 (5-19) BUN 13 (8-23) mg/dL Creatinine 1.1 (0.7-1.2) mg/dL GFR Calculation 68.1 L (90-130) mL/min Glucose 82 (65-115) mg/dL Calculated Osmolal ity 277 L (285-295) mOsm/k g Calcium 9.8 (8.5-10.5) mg/dL Total Bilirubin 0.9 (0.15-1.2) mg/dL AST 12 (0-40) U/L ALT 12 (0-41) U/L Alkaline Phosphata se 104 (40-130) IU/L Total Protein 7.2 (6.6-8.7) g/dL Albumin 4.6 (3.5-5.2) g/dL Globulin 2.6 (1.3-4.6) g/dL Discharge Plan Discharge Patient Disposition: Admitted As Inpatient Admit Provider: Ricky Agustin Clinical Impression: Priapism Condition: Stable Coding Level of Care Code ED Social Services Director for g Fwd Exam Detailed
[2020-11-10 12:34] LABS: Basophils # 0.1 10^3/uL (0.0-0.1); Basophils % 0.6 %; Eosinophils # 0.1 10^3/uL (0.0-0.8); Eosinophils % 0.4 %; Hematocrit 49.5 % (42.0-52.0); Hemoglobin 16.2 g/dL (11.7-16.6); Lymphocytes # 1.5 10^3/uL (0.8-4.8); Lymphocytes % 10.8 %; Mean Corpuscular HGB Conc 32.7 g/dL (30.0-36.0); Mean Corpuscular Hemoglobin 31.5 pg (28.0-34.0); Mean Corpuscular Volume 96.3 fL (80-94); Mean Platelet Volume 9.3 fL (7.4-10.4); Monocytes # 1.4 10^3/uL (0.2-0.9); Monocytes % 10.1 %; Neutrophils # 10.69 10^3/uL (1.8-7.7); Neutrophils % 77.7 %; Nucleated Red Blood Cells % 0 %; Platelet Count 316 10^3/cmm (130-400); Red Blood Count 5.14 10^6/uL (4.1-5.3); Red Cell Distribution Width 12.6 % (12.1-15.1); White Blood Count 13.8 10^3/uL (4.0-10.0)
[2020-11-10 12:48] LABS: INR 0.83 (0.8-1.2)
[2020-11-10 12:52] LABS: Alanine Aminotransferase 12 U/L (0-41); Albumin Level 4.6 g/dL (3.5-5.2); Alkaline Phosphatase 104 IU/L (40-130); Anion Gap 12.8 (5-19); Aspartate Amino Transferase 12 U/L (0-40); Blood Urea Nitrogen 13 mg/dL (8-23); Calcium 9.8 mg/dL (8.5-10.5); Carbon Dioxide 29 mmol/L (22-29); Chloride 97 mmol/L (98-107); Globulin 2.6 g/dL (1.3-4.6); Glomerular Filtration Rate 68.1 mL/min (90-130); Glucose 82 mg/dL (65-115); Osmolality Calculated 277 mOsm/kg (285-295); Potassium 4.8 mmol/L (3.5-5.1); Sodium 134 mmol/L (136-145); Total Bilirubin 0.9 mg/dL (0.15-1.2); Total Protein 7.2 g/dL (6.6-8.7)
--- NOTE | 2020-11-10 13:08 | P.HP_ITS ---
Providers/Chief Complaint Primary Care Provider: Christi Zurita DO Chief Complaint: 3 day erection/painfull History of Present Illness Bull Combs is a 60 year old male who I have seen in the past for erectile dysfunction and Peyronie's plaque with left lateral curvature. On Monday night he woke up at about 10:30 PM with an erection. He has maintained that erection since. He was directed to go to the emergency room yesterday but failed to do so. Describes severe pain. No difficulty voiding. No bleeding urethral discharge or other urinary symptoms. He has not taken any sildenafil for about a month. He thinks since he started the pentoxifylline for Peyronie's plaques he gets short duration erections about 3 times per week spontaneously with spontaneous resolution. Does take CHRONIC TRAZODONE nightly. He is used it for years. He is unaware of his dose. Also takes chronic testosterone. Due for an injection soon. PROCEDURE: Intracorporal injection for priapism 1 mg phenylephrine per 10 cc normal saline mixture Skin and corporal cavernosal on the right midshaft opposite side of deviation/bend prepped and anesthetized with 1% lidocaine. 23-gauge butterfly placed. Approximately 2 cc of blood evacuated under gravity. Irrigation with injectable saline yielded very little more. Over period of approximately 1 hour 4 cc of the phenylephrine mixture was slowly and instilled into the corporal cavernosal with no change in tumescence. Because of failed conservative management he is going to be taken to the operating room emergently for Winter shunt. I reviewed the procedure with him in detail. We also reviewed that he is likely to have significant impact on his erections due to prolonged priapism for >36 hours. We also reviewed that it may take more than one session in the operating room to create an adequate shunt and that is maintained and potentially convert to a direct shunting between the spongy tissue of the corpora cavernosa and corporal spongiosum. He expressed understanding regarding these concerns and gave informed consent to proceed. Review of Systems Const: Denies: fever(s), chills or fatigue Eyes: Denies: change in vision or blurry vision ENMT: Denies: throat pain or odynophagia Card: Denies: chest pain, palpitations or lightheadedness Resp: Reports: dyspnea and wheezing GI: Reports: nausea; Denies: abdominal pain, vomiting or change in stool character : Reports: other (PRIAPISM); Denies: flank pain, difficulty urinating, genital lesions or testicular pain Musc: Reports: neck pain and back pain; Denies: joint warmth Skin/Breast: Reports: rash and new lesions Neuro: Denies: headache(s) Psych: Reports: anxiety and depression Endo: Denies: cold intolerance or flushing Js/Lymph: Denies: easy bruising or easy bleeding All/Imm: Denies: urticaria Medications/Allergies Home Medications Medication Instructions Recorded Confirmed Last Taken Type sumatriptan succinate 100 mg tablet See Rx Instructions PO .COMPLEX #9 01/27/20 11/10/20 05/24/20 20:00 Rx tab montelukast 10 mg tablet 10 mg PO DAILY #90 tab 02/04/20 11/10/20 11/10/20 Rx sildenafil 100 mg tablet 100 mg PO DAILY PRN #20 tab 03/12/20 11/10/20 05/24/20 20:00 Rx vitamin E (dl, acetate) 400 unit 400 unit PO BID #60 cap 03/12/20 11/10/20 05/24/20 20:00 Rx capsule testosterone cypionate 200 mg/mL 200 mg IM .COMPLEX #2.5 each 04/01/20 11/10/20 10/31/20 Rx intramuscular kit atenolol 25 mg tablet 25 mg PO DAILY #30 tab 05/15/20 11/10/20 11/10/20 Rx promethazine-DM 6.25 mg-15 mg/5 mL 5 ml PO Q6H PRN #118 ml 05/15/20 11/10/20 05/24/20 20:00 Rx oral syrup Afrin (oxymetazoline) 1 spray NOSTRIL-B PRN PRN 05/21/20 11/10/20 05/24/20 20:00 History Men's 50 Plus Multivitamin 1 tab PO DAILY 05/21/20 11/10/20 11/10/20 History duloxetine 60 mg capsule,delayed 60 mg PO BID #60 cap 05/27/20 11/10/20 11/10/20 Rx release lamotrigine 100 mg tablet 100 mg PO BID tab 06/15/20 11/10/20 11/10/20 History trazodone 100 mg tablet 50 mg PO BEDTIME tab 06/15/20 11/10/20 11/09/20 History vitamin B complex 1 tab PO DAILY 07/22/20 11/10/20 Unknown History ropinirole 1 mg tablet 1 mg PO DAILY #30 tab 08/18/20 11/10/20 11/09/20 Rx losartan 25 mg tablet 25 mg PO DAILY #30 tab 09/16/20 11/10/20 11/10/20 Rx umeclidinium 62.5 mcg-vilanterol 1 inh INHALATION DAILY #60 ea 09/16/20 11/10/20 Unknown Rx 25 mcg/actuation powdr for inhalation ibuprofen 400 mg tablet 400 mg PO Q8H PRN #30 tab 10/29/20 11/10/20 Unknown Rx aspirin 81 mg PO DAILY 11/10/20 11/10/20 11/10/20 History atorvastatin 20 mg PO BEDTIME 11/10/20 11/10/20 11/09/20 History epinephrine 0.3 mg IM ONCE PRN 11/10/20 11/10/20 Unknown History fluticasone propionate 2 spray INTRANASAL DAILY 11/10/20 11/10/20 Unknown History pantoprazole 40 mg PO DAILY 11/10/20 11/10/20 11/10/20 History ropinirole 4 mg PO BEDTIME 11/10/20 11/10/20 11/09/20 History Allergies Allergy/AdvReac Type Severity Reaction Status Date / Time insect venom Allergy Severe Anaphylaxis Verified 09/16/20 08:50 grass pollen Allergy Unknown Verified 09/16/20 08:50 house dust Allergy Unknown Verified 09/16/20 08:50 mold Allergy Unknown Verified 09/16/20 08:50 wood dust Allergy Unknown Uncoded 09/16/20 08:50 PFSH Acute PFSH: Medical History Chronic back pain Chronic tension headache COPD (chronic obstructive pulmonary disease) CPAP (continuous positive airway pressure) dependence Degenerative disc disease, cervical Enrolled in chronic care management Erectile dysfunction GERD (gastroesophageal reflux disease) Hearing loss Hoarseness Hypercholesterolemia Iron deficiency anemia Migraine with aura, not intractable, without status migrainosus Opioid dependence, in remission Pulmonary emphysema QT prolongation Restless legs syndrome Testosterone deficiency Surgical History History of cervical spinal surgery 12/02/2019 C5-C6, C6-C7 ACDFF History of ear surgery History of knee surgery History of surgery on upper extremity S/P hernia surgery Family History Mother Cancer Sister Diabetes Father Heart attack Grandfather Heart attack Social History Smoking and tobacco status: current every day smoker cigarettes Packs smoked per day: 0.25 Years cigarettes smoked: 52 [ Other cigarette details: 1 PPD x 52 Year History ] Quit status (tobacco): considering quitting Second hand smoke exposure: Yes Smoking risk assessment/counseling performed?: Yes Alcohol intake: never Lives independently: Yes Household members: spouse Marital status: Current occupational status: disabled History of recent travel: No Current gender identity: Male Vitals/I&O/Wt Last Vital Signs Temp 98.2 F 11/10/20 11:29 Pulse 74 11/10/20 11:29 Resp 16 11/10/20 11:29 BP 166/102 11/10/20 11:29 Pulse Ox 97 11/10/20 11:39 Weight last 48 hrs Weight 160 lb Physical Exam Const: COMMON NORMALS: alert and well nourished GENERAL APPEARANCE: well kempt and well developed ORIENTATION/CONSCIOUSNESS: not confused HENMT: HEAD & SCALP: normocephalic and atraumatic Eye: COMMON NORMALS: conjunctivae normal and no scleral icterus Neck/C-Spine: COMMON NORMALS: full ROM GENERAL: Yes normal visual inspection Lymph: LYMPHATIC: no lymphadenopathy noted and no lymphedema noted Resp: COMMON NORMALS: normal respiratory effort EFFORT & INSPECTION: No labored and No Actively coughing Cardio: COMMON NORMALS: regular rate and regular rhythm RATE: tachycardic GI: COMMON NORMALS: Soft to palpation, non-tender and no masses : COMMON NORMALS: Yes Testes normal, Yes scrotum normal and Yes no scrotal swelling BLADDER/KIDNEY EXAM: Yes bladder normal to palpation and Yes no CVA tenderness MALE GROIN/PERINEUM EXAM: No ecchymosis PENIS: circumcised and other (Painful priapism, left directional curvature midshaft) Back/Pelvis: COMMON NORMALS: no CVA tenderness Extremity: COMMON NORMALS: no clubbing, cyanosis or edema Neuro: COMMON NORMALS: no focal motor deficits SENSORIUM/ORIENTATION: Yes alert Psych: COMMON NORMALS: mental status grossly normal APPEARANCE: Yes grossly normal and Yes well kempt ATTITUDE: Yes engaged Skin: COMMON NORMALS: no rashes or lesions noted and no jaundice Data : 11/10/20 12:10 11/10/20 12:10 A&P Assessment and plan (1) Priapism, unspecified: 36+ hour priapism likely related to trazodone. Failed intracorporal injection with phenylephrine (0.1 mg/cc) total 4 cc instilled. To the operating room emergently for Ruiz shunt. Plan admission to the hospital. Status: Acute (2) Peyronie disease: Status: Acute (3) Testosterone deficiency: Status: Chronic (4) History of cervical spinal surgery: Status: Acute (5) GERD (gastroesophageal reflux disease): Status: Chronic Qualifiers: Esophagitis presence: esophagitis presence not specified Qualified Code(s): K21.9 - Gastro-esophageal reflux disease without esophagitis (6) COPD (chronic obstructive pulmonary disease): Status: Acute Qualifiers: COPD type: unspecified COPD Qualified Code(s): J44.9 - Chronic obstructive pulmonary disease, unspecified (7) Cannabis use disorder, severe, dependence: Status: Acute (8) Nicotine dependence, unspecified, uncomplicated: Status: Acute Attestations Medical Necessity Statement*: Refractory priapism. Needs emergency surgery. Coding Level of Care Code Acute Second Chef for [facility] Fwd Exam Comprehensive Diagnoses Priapism, unspecified N48.30 Peyronie disease N48.6 Testosterone deficiency E34.9 History of cervical spinal surgery Z98.890 GERD (gastroesophageal reflux disease) K21.9 Esophagitis presence: esophagitis presence not specified COPD (chronic obstructive pulmonary disease) J44.9 COPD type: unspecified COPD Cannabis use disorder, severe, dependence F12.20 Nicotine dependence, unspecified, uncomplicated F17.200
--- NOTE | 2020-11-10 13:31 | PC.NURSE ---
this nurse assisted dr saucedo during procedure. 45min to 1 hour
--- NOTE | 2020-11-10 13:38 | ANES.PREANE2 ---
Pre-Anesthetic Assessment Pre-Anesthetic Assessment: Height/Weight: Height 1.75 m Weight 72.575 kg Temp Pulse Resp BP Pulse Ox 98.8 F 77 18 123/64 95 11/10/20 13:33 11/10/20 13:33 11/10/20 13:33 11/10/20 13:33 11/10/20 13:33 Preop Diagnosis: priapism Proposed Procedure: Operation Date: 11/10/20 14:00 Proposed Procedures p Winter's Shunt(Not Applicable) - Ricky Agustin MD Familial anesthetic complications: None Was Beta Kourtney taken within 24 hours: N/A Last intake: Intake Last Liquid Date 11/10/20 Last Liquid Time 09:00 Last Solid Date 11/10/20 Last Solid Time 09:00 Social: Social History: Tobacco and No alcohol Exam: Pre-Anes Outpt Exam: alert, oriented x 3, clear to auscultation bilaterally and regular rate & rhythm Airway: Cervical ROM: WNL MP: 3 Dentition: False Pulmonary: Pulmonary: COPD and Sleep apnea CV/HEM: CV/HEM: HTN GI: GI: GERD Anesthetic Plan: ASA status: 3E Anesthesia: General Other: RSI Risk of > 500 ml blood loss (7ml/kg in children): No PFSH Anesthesia PFSH: Medical History Chronic back pain Chronic tension headache COPD (chronic obstructive pulmonary disease) CPAP (continuous positive airway pressure) dependence Degenerative disc disease, cervical Enrolled in chronic care management Erectile dysfunction GERD (gastroesophageal reflux disease) Hearing loss Hoarseness Hypercholesterolemia Iron deficiency anemia Migraine with aura, not intractable, without status migrainosus Opioid dependence, in remission Pulmonary emphysema QT prolongation Restless legs syndrome Testosterone deficiency Surgical History History of cervical spinal surgery 12/02/2019 C5-C6, C6-C7 ACDFF History of ear surgery History of knee surgery History of surgery on upper extremity S/P hernia surgery Family History Mother Cancer Sister Diabetes Father Heart attack Grandfather Heart attack Social History Smoking and tobacco status: current every day smoker cigarettes Packs smoked per day: 0.25 Years cigarettes smoked: 52 [ Other cigarette details: 1 PPD x 52 Year History ] Quit status (tobacco): considering quitting Second hand smoke exposure: Yes Smoking risk assessment/counseling performed?: Yes Alcohol intake: never Lives independently: Yes Household members: spouse Marital status: Current occupational status: disabled History of recent travel: No Current gender identity: Male Data Anesthesia CBC & Chem 7: 11/10/20 12:10 11/10/20 12:10 Other Labs: Laboratory Results - last 48 hr 11/10/20 11/10/20 11/10/20 12:10 12:10 12:10 WBC 13.8 H RBC 5.14 Hgb 16.2 Hct 49.5 MCV 96.3 H MCH 31.5 MCHC 32.7 RDW 12.6 Plt Count 316 MPV 9.3 Neut % (Auto) 77.7 Lymph % (Auto) 10.8 [facility] % (Auto) 10.1 Eos % (Auto) 0.4 Baso % (Auto) 0.6 Neut # (Auto) 10.69 H Lymph # (Auto) 1.5 [facility] # (Auto) 1.4 H Eos # (Auto) 0.1 Baso # (Auto) 0.1 Nucleated RBC % (auto) 0 Nucleated RBCs # 0.0 PT 11.60 L INR 0.83 Sodium 134 L Potassium 4.8 Chloride 97 L Carbon Dioxide 29 Anion Gap 12.8 BUN 13 Creatinine 1.1 GFR Calculation 68.1 L Glucose 82 Calculated Osmolality 277 L Calcium 9.8 Total Bilirubin 0.9 AST 12 ALT 12 Alkaline Phosphatase 104 Total Protein 7.2 Albumin 4.6 Globulin 2.6 Cardiac Studies: No Data to Display
[2020-11-10] MEDS: sodium chloride 0.9% 1,000 ML 30 ML IV (13:54)
--- NOTE | 2020-11-10 14:33 | P.OP_ITS ---
Operative Report Date of procedure: November 10, 2020 Pre-op Diagnosis: Refractory priapism Post-op diagnosis: same Procedure Done: Ruiz shunt Pathology: none sent Surgeon: Vamsi Anesthesia: General Estimated blood loss: 60 cc estimated Urine output: None Complications: None Findings: Good detumescence with Winter shunt. Lightly compressive dressing applied. Shunt functional to completion of the procedure with easy detumescence by squeezing the penis with refilling Condition: stable Disposition: PACU Brief History: Edison is a 60-year-old white male who presented to the emergency department today with about 36 hours of refractory very painful priapism. Risk factors include trazodone primarily. Does have a prescription for Viagra but he states he has not taken it in about a month. He does have a history of Peyronie's plaque with left curvature and has been taking PENTOXIFYLLINE for that. Intracorporal irrigation and injection procedure failed in the emergency department and he was recommended to go to the operating room emergently for a Ruiz shunt. Procedure: After emergent evaluation examination and obtaining of informed consent he was taken to the operating suite on 11/10/2020 where general anesthesia was administered without difficulty after appropriate timeout was performed, SCDs confirmed to be functioning, preoperative antibiotics administered, beta- kim protocol confirmed. Prepped and draped in usual sterile fashion in supine position paying careful attention to avoiding pressure points. The carpal cavernosa distal ends were easily palpable through the glans penis. A single puncture incision was made at about the midline on the dorsal aspect of the glans with bright red blood returned. A 14-gauge Mono-Cut biopsy needle was then utilized to perform 2 passes through each distal corpora cavernosa with immediate return of dark blood. This led to immediate detumescence.An estimated 60 cc of this dark blood was expressed from the incision over period of the next several minutes. Confirmation of persistent detumescence was made. There was a little bit of recurrence of tumescence but it was easily decompressed with squeezing of the phallus. After confirmation of adequate fistula formation the skin edges were approximated with [id number] [id number] chromic suture with meticulous hemostasis. A penile block was performed with 0.25% Marcaine. Prior to breaking the field detumescence was confirmed and further complete detumescence demonstrated with squeezing the phallus. Hemostasis was also confirmed. A light compressive dressing of Coban tape over a single wrap of 4 x 4 was applied. Tolerated procedure well without complications. He was awakened in the operating room and returned to the recovery room in stable condition. PLANS: 1. Admit for observation 2. Regular intervals squeezing of the penis to maintain patency of the fistula
[2020-11-10] MEDS: fentaNYL 50 mcg/mL INJ 2mL IVP (15:02)
--- NOTE | 2020-11-10 15:07 | SUR.PHASEI ---
BP set to q15 min until 1500
--- NOTE | 2020-11-10 16:23 | SUR.PHASEI ---
1443: PAtient into PACU. Oral airway removed on arrival to Prep 10. Patient drowsy. O2 at 88% on room air, nasal cannula applied at 2L. O2 to 93%. Dressing in place. 1500- Dr. Agustin in room speaking with patient about massaging penis to release blood flow from it. Dr. Agustin applied pressure to penis manually to demonstrate to patient how this should be done. Patient instructed to do this every 30 minutes for 3-4 squeezes or until penis is soft again. 1502: patient complains of pain in penis, medicated per orders. 1530: patient instructed to squeeze penis as directed by Dr. Agustin. 1550: Report called to Malathi SESAY. Patient transported to floor on 2L O2. Patient awake and alert, talking. Patient moved self to floor bed. Dressing in place. Malathi in patients room on arrival.
--- NOTE | 2020-11-10 16:34 | PC.NURSE ---
1600 OR NOTE UP VIA LEIGH WITH KENZIE, RN - PT ASSISTED TO BED - AP RRR - LUNGS CTA THROUGHOUT - IV PATENT TO LEFT FA VIA PUMP - ABD SOFT - WITH BS HYPOACTIVE - COBAN NOTED TO PENIS - PT INSTRUCTED PER DR JACOBSON AND OR NURSE TO MASSAGE PENIS EVERY 30MINUTES - 3-4 TIMES - PT VERBALIZES UNDERSTANDING - BOTH PT AND OR NURSE STATE PENIS IS SOFTER THAN PREVIOUSLY NOTED - BLE NOTED TO HAVE SCD'S - WILL MONITOR AND CONTINUE EDUCATION
[2020-11-10] MEDS: ketorolac 30 mg/mL INJ 15 MG IVP (16:42)
[2020-11-10] MEDS: docusate sodium 100 mg Capsule PO (16:43)
[2020-11-10] MEDS: nicotine 14 mg Patch 1 PATCH TRANSDERMA (17:17)
--- NOTE | 2020-11-10 17:53 | PC.NURSE ---
END OF SHIFT NOTE Q 30 MINUTES PT HAS MASSAGED PENIS 3-4 TIMES PER THIS NURSE - AT PRESENT TIME - PT REMAINS SOFT - CONTINUES TO UNDERSTAND PLAN OF CARE
--- NOTE | 2020-11-10 18:53 | PM.MISC ---
Miscellaneous Note Note: Urology postoperative check: Symptoms are well controlled. Does have some pain with squeezing of the penis to decompress. Dressing removed. Phallus looks healthy. Some bruising of the glans penis. Good perfusion. Reviewed expectations regarding maintaining patency of the distal corporal cavernosal shunts. We will recheck in the morning to see how he is doing. Will likely require care to cross 2 midnights. Questions answered and expectations reviewed.
[2020-11-10] MEDS: atorvastatin 40 mg Tablet 20 MG PO (21:27)
[2020-11-10] MEDS: lamoTRIgine 100 mg Tablet PO (21:27)
[2020-11-10] MEDS: ropinirole 2 mg Tablet 4 MG PO (21:28)
[2020-11-10] MEDS: duloxetine 60 mg Capsule PO (21:28)
--- NOTE | 2020-11-10 21:34 | ANE.PACU2 ---
Inpatient post-anesthesia follow up: Airway intact: Yes Vital signs: Temperature 98.7 F Pulse Rate [Left R adial] 74 Pulse Rate 87 Respiratory Rate 18 Blood Pressure [Le ft Arm] 166/102 Blood Pressure 117/70 Pulse Oximetry 95 Oxygen Delivery Me thod [ Nasal Cannula Current Rate & Del shaun] Oxygen Delivery Me thod Room Air Oxygen Flow Rate [ Current Rate 1 & Delivery] Oxygen Flow Rate 2 Fraction of Inspir ed Oxygen 21 Hydration adequate: Yes Nausea and vomiting: No Pain level: 4 Mental status: Baseline
[2020-11-10] MEDS: lactated ringers 1,000 ML 30 ML IV (23:05)
[2020-11-11 00:50] VITALS: BP 113/73; PULSE 80; RESP 18; TEMP 37.1; O2SAT 92
[2020-11-11] MEDS: ketorolac 30 mg/mL INJ 15 MG IVP ×2 (01:01→06:37)
[2020-11-11 04:00] VITALS: BP 118/71; PULSE 75; RESP 20; TEMP 36.7; O2SAT 92
--- NOTE | 2020-11-11 07:34 | P.DS_ITS ---
Discharge Providers Date of Admission: 11/10/20 17:00 Date of Discharge: November 11, 2020 Attending Provider at Admission: Ricky Agustin MD Attending Provider at Discharge: Ricky Agustin MD Primary Care Provider: Christi Zurita DO Diagnoses at Discharge Discharge Diagnosis (1) Priapism, unspecified: Status: Acute Permanent problem details: Likely related to trazodone usage. Required Winter shunt November 2020. (2) Peyronie disease: Status: Acute (3) Testosterone deficiency: Status: Chronic (4) History of cervical spinal surgery: Status: Acute Permanent problem details: 12/02/2019 C5-C6, C6-C7 ACDFF (5) GERD (gastroesophageal reflux disease): Status: Chronic Qualifiers: Esophagitis presence: esophagitis presence not specified Qualified Code(s): K21.9 - Gastro-esophageal reflux disease without esophagitis (6) COPD (chronic obstructive pulmonary disease): Status: Acute Qualifiers: COPD type: unspecified COPD Qualified Code(s): J44.9 - Chronic obstructive pulmonary disease, unspecified (7) Cannabis use disorder, severe, dependence: Status: Acute (8) Nicotine dependence, unspecified, uncomplicated: Status: Acute Reason for Visit Reason for Visit: 3 day erection/painfull Hospital Course Hospital Course Evaluated in the ER for 36 hours of priapism. Failed injection therapy and irrigation with phenylephrine. Taken to the operating room emergently on day of admission (11/10/2020). Winter's shunt performed with good detumescence. Maintenance of detumescence over the remainder of the hospital course. Squeezing program conducted. No recurrence of priapism. Discharge on postoperative day #1 in stable condition. Originally was anticipated that he would require inpatient status and was admitted to the hospital as an inpatient but he recovered quicker than anticipated and therefore was discharged on postoperative day #1. Original concern was that based on the duration of priapism there was a good chance that he might require repeat operation. Physical Exam Const: COMMON NORMALS: no acute distress, alert and well nourished GENERAL APPEARANCE: well kempt and well developed ORIENTATION/CONSCIOUSNESS: not confused HENMT: COMMON NORMALS: normocephalic and atraumatic HEAD & SCALP: normocephalic and atraumatic Eye: COMMON NORMALS: conjunctivae normal CONJUNCTIVA: Yes conjunctivae normal Neck/C-Spine: COMMON NORMALS: full ROM GENERAL: Yes normal visual inspection Resp: COMMON NORMALS: normal respiratory effort EFFORT & INSPECTION: No labored and No Actively coughing Extremity: COMMON NORMALS: no clubbing, cyanosis or edema Neuro: SENSORIUM/ORIENTATION: Yes alert Psych: COMMON NORMALS: mental status grossly normal APPEARANCE: Yes grossly normal and Yes well kempt ATTITUDE: Yes calm and Yes engaged Skin: COMMON NORMALS: no rashes or lesions noted and no jaundice GENERAL SKIN EXAM: no rashes or lesions noted Discharge Data Data Completed and Pending: Labs from last 24 hours 11/10/20 11/10/20 11/10/20 12:10 12:10 12:10 WBC 13.8 H RBC 5.14 Hgb 16.2 Hct 49.5 MCV 96.3 H MCH 31.5 MCHC 32.7 RDW 12.6 Plt Count 316 MPV 9.3 Neut % (Auto) 77.7 Lymph % (Auto) 10.8 [place] % (Auto) 10.1 Eos % (Auto) 0.4 Baso % (Auto) 0.6 Neut # (Auto) 10.69 H Lymph # (Auto) 1.5 Wy[place] # (Auto) 1.4 H Eos # (Auto) 0.1 Baso # (Auto) 0.1 Nucleated RBC % (a uto) 0 Nucleated RBCs # 0.0 PT 11.60 L INR 0.83 Sodium 134 L Potassium 4.8 Chloride 97 L Carbon Dioxide 29 Anion Gap 12.8 BUN 13 Creatinine 1.1 GFR Calculation 68.1 L Glucose 82 Calculated Osmolal ity 277 L Calcium 9.8 Total Bilirubin 0.9 AST 12 ALT 12 Alkaline Phosphata se 104 Total Protein 7.2 Albumin 4.6 Globulin 2.6 Vitals: Last Vital Signs Temp 98.1 F 11/11/20 04:00 Pulse 75 11/11/20 04:00 Resp 20 H 11/11/20 04:00 BP 118/71 11/11/20 04:00 Pulse Ox 92 11/11/20 04:00 Discharge Plan Discharge Patient Disposition: Home Condition: Good Prescriptions: Continued vitamin E (dl, acetate) 400 unit capsule 400 unit PO BID Qty: 60 RF: 12 sildenafil 100 mg tablet 100 mg PO DAILY PRN (Reason: sexual activity) Qty: 20 RF: 12 promethazine-DM 6.25-15 mg/5 mL syrup 5 ml PO Q6H PRN (Reason: cough) Qty: 118 RF: 0 vitamin B complex [B Complex-Vitamin B12] Tablet 1 tab PO DAILY RF: 0 lamotrigine [Lamictal] 100 mg tablet 100 mg PO BID RF: 0 Cymbalta 60 mg capsule,delayed release(DR/EC) 60 mg PO BID Qty: 60 RF: 2 Anoro Ellipta 62.5-25 mcg/actuation blister with device 1 inh inhalation DAILY Qty: 60 RF: 3 losartan 25 mg tablet 25 mg PO DAILY Qty: 30 RF: 3 sumatriptan succinate [Imitrex] 100 mg tablet See Rx Instructions PO .COMPLEX Qty: 9 RF: 3 montelukast [Singulair] 10 mg tablet 10 mg PO DAILY Qty: 90 RF: 2 testosterone cypionate 200 mg/mL kit 200 mg IM .COMPLEX Qty: 2.5 RF: 2 atenolol 25 mg tablet 25 mg PO DAILY Qty: 30 RF: 5 ropinirole 1 mg tablet 1 mg PO DAILY Qty: 30 RF: 5 ibuprofen 400 mg tablet 400 mg PO Q8H PRN (Reason: pain) Qty: 30 RF: 0 Men's 50 Plus Multivitamin 1 tab PO DAILY RF: 0 Afrin (oxymetazoline) 1 spray NOSTRIL-B PRN PRN (Reason: Allergy Symptoms) RF: 0 atorvastatin 20 mg tablet 20 mg PO BEDTIME RF: 0 pantoprazole 40 mg tablet,delayed release (DR/EC) 40 mg PO DAILY RF: 0 epinephrine 0.3 mg/0.3 mL auto-injector 0.3 mg IM ONCE PRN (Reason: Allergic Reaction) RF: 0 fluticasone propionate 50 mcg/actuation spray,suspension 2 spray intranasal DAILY RF: 0 ropinirole 4 mg tablet 4 mg PO BEDTIME RF: 0 aspirin 81 mg Tablet,Chewable 81 mg PO DAILY RF: 0 Discontinued trazodone 100 mg tablet 50 mg PO BEDTIME RF: 0 Discharge Orders: Discharge Order (Routine); Ordered 11/11/20 Ordered By: Ricky Agustin Referrals: Ricky Agustin MD [Physician] - 7-10 days (Postop check) Discharge Diet: Usual diet Discharge Activity: Limit activity as instructed Activity Restrictions/Additional Instructions: 1. No lifting or straining greater than 15 pounds for 2 weeks. 2. No sexual activity 3. Call for recurrence of priapism. 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
[2020-11-11 07:46] VITALS: BP 122/77; PULSE 65; RESP 17; TEMP 36.7; O2SAT 92
[2020-11-11] MEDS: montelukast sodium 10 mg Tablet PO (08:52)
[2020-11-11] MEDS: duloxetine 60 mg Capsule PO (08:52)
[2020-11-11] MEDS: lamoTRIgine 100 mg Tablet PO (08:52)
[2020-11-11] MEDS: losartan 50 mg Tablet 25 MG PO (08:52)
[2020-11-11] MEDS: docusate sodium 100 mg Capsule PO (08:52)
[2020-11-11] MEDS: pantoprazole DR 40 mg Tablet PO (08:52)
[2020-11-11] MEDS: aspirin 81 mg Chew Tablet PO (08:53)
[2020-11-11] MEDS: ropinirole 1 mg Tablet PO (08:53)
[2020-11-11] MEDS: atenolol 50 mg Tablet 25 MG PO (08:53)
[2020-11-11] MEDS: nicotine 14 mg Patch 1 PATCH TRANSDERMA (08:58)
[2020-11-11 08:59] VITALS: PULSE 80; O2SAT 95
[2020-11-11 09:15] VITALS: PULSE 80; O2SAT 95
[2020-11-11 10:20] VITALS: PULSE 80; O2SAT 95
--- NOTE | 2020-11-11 10:29 | PC.NURSE ---
DISCHARGE INSTRUCTIONS BOTH PATIENT AND INSTRUCTED ON DISCHARGE INSTRUCTIONS PER DR JACOBSON - PT UNDERSTANDS DR INSTRUCTIONS PER VERBAL THIS AM TO CONTINUE TO MASSAGE PENIS EVERY HOUR AND REPORT ANY INCREASE IN FIRMNESS TO DOCTOR - PT REFUSES TO WAIT FOR FOLLOW UP APPOINTMENT TO BE MADE - INSTRUCTS BOTH PT AND TO CALL OFFICE TO SCHEDULE A FOLLOW UP - BOTH VERBALIZE UNDERSTANDING
== END 2020-11-11 10:31 | disposition home or self-care (01) | DRG 710 ==
LOC: ER 12:35 → OPS 13:00 → MEDSURG 15:59
PROVIDERS: Admitting Provider Urology; Emergency Provider Family Medicine; PCP Family Medicine; Visit Provider Urology
PROC: 0VQS3ZZ Repair Penis, Percutaneous Approach (ICD-10-PCS; CPT 54435; principal; 2020-11-10 14:00)
DX: N48.33 Priapism, drug-induced (principal); T43.215A Adverse effect of selective serotonin and norepinephrine reuptake inhibitors, initial encounter; N52.9 Male erectile dysfunction, unspecified; N48.6 Induration penis plastica; Q55.61 Curvature of penis (lateral); G89.29 Other chronic pain; G44.229 Chronic tension-type headache, not intractable; K21.9 Gastro-esophageal reflux disease without esophagitis; H91.90 Unspecified hearing loss, unspecified ear; E78.00 Pure hypercholesterolemia, unspecified; D50.9 Iron deficiency anemia, unspecified; J43.9 Emphysema, unspecified; G25.81 Restless legs syndrome; E29.1 Testicular hypofunction; Z98.1 Arthrodesis status; F17.210 Nicotine dependence, cigarettes, uncomplicated; F12.20 Cannabis dependence, uncomplicated; Z79.82 Long term (current) use of aspirin
CPT/HCPCS: 80053; 85025; 85610; 94660; 96365; 96374; 96375; 99285; G0378; J0330; J0690; J1885; J2270; J2405; J2704; J3010; J3490; J7030

== ENCOUNTER → 2020-11-17 09:25 | Outpatient (BNVA) | payer MEDICARE, SELFPAY | PROVIDERS: PCP Family Medicine; Visit Provider Family Medicine | DX: E78.5 Hyperlipidemia, unspecified (principal); E34.9 Endocrine disorder, unspecified | CPT/HCPCS: 80061; 84403 ==

== ENCOUNTER → 2020-11-24 12:00 | Outpatient (BNVA) | payer MEDICARE, SELFPAY | PROVIDERS: PCP Family Medicine; Visit Provider Psychiatry & Neurology Psychiatry | DX: F33.2 Major depressive disorder, recurrent severe without psychotic features (principal); F17.200 Nicotine dependence, unspecified, uncomplicated; F15.21 Other stimulant dependence, in remission; F12.20 Cannabis dependence, uncomplicated | CPT/HCPCS: 99214 ==

== ENCOUNTER → 2020-12-28 11:44 | Outpatient (BNVA) | payer MEDICARE, SELFPAY | PROVIDERS: PCP Family Medicine; Visit Provider Psychiatry & Neurology Psychiatry | DX: F41.1 Generalized anxiety disorder (principal); F42.9 Obsessive-compulsive disorder, unspecified; F17.200 Nicotine dependence, unspecified, uncomplicated; F15.21 Other stimulant dependence, in remission; F33.2 Major depressive disorder, recurrent severe without psychotic features | CPT/HCPCS: 99214 ==

== ENCOUNTER → 2021-01-26 12:18 | Outpatient (BNVA) | payer MEDICARE, SELFPAY | PROVIDERS: PCP Family Medicine; Visit Provider Psychiatry & Neurology Psychiatry | DX: F42.9 Obsessive-compulsive disorder, unspecified (principal); F41.1 Generalized anxiety disorder; F12.20 Cannabis dependence, uncomplicated; F17.200 Nicotine dependence, unspecified, uncomplicated; F15.21 Other stimulant dependence, in remission; F33.2 Major depressive disorder, recurrent severe without psychotic features | CPT/HCPCS: 99214 ==

== ENCOUNTER → 2021-04-06 15:20 | Outpatient (BNVA) | payer MEDICARE, SELFPAY | PROVIDERS: PCP Internal Medicine; Visit Provider Internal Medicine | DX: R53.83 Other fatigue (principal); F17.200 Nicotine dependence, unspecified, uncomplicated | CPT/HCPCS: 80053; 80061; 82607; 82746; 83550; 84443 ==

== ENCOUNTER → 2021-04-08 11:30 | Outpatient (BNVA) | payer MEDICARE, SELFPAY | PROVIDERS: PCP Internal Medicine; Visit Provider Internal Medicine Pulmonary Disease | DX: Z20.822 Contact with and (suspected) exposure to COVID-19 (principal); J44.9 Chronic obstructive pulmonary disease, unspecified | CPT/HCPCS: 87635 ==

== ENCOUNTER → 2021-04-20 12:02 | Outpatient (BNVA) | payer MEDICARE, SELFPAY | PROVIDERS: PCP Internal Medicine; Visit Provider Psychiatry & Neurology Psychiatry | DX: F41.1 Generalized anxiety disorder (principal); F33.2 Major depressive disorder, recurrent severe without psychotic features; F42.9 Obsessive-compulsive disorder, unspecified; F17.200 Nicotine dependence, unspecified, uncomplicated; F12.20 Cannabis dependence, uncomplicated; F15.21 Other stimulant dependence, in remission | CPT/HCPCS: 99214 ==

== ENCOUNTER → 2021-06-03 12:35 | Outpatient (BNVA) | payer MEDICARE, SELFPAY | PROVIDERS: PCP Internal Medicine; Visit Provider Internal Medicine Pulmonary Disease | DX: J44.9 Chronic obstructive pulmonary disease, unspecified (principal); R06.00 Dyspnea, unspecified; Z20.822 Contact with and (suspected) exposure to COVID-19 | CPT/HCPCS: 87635 ==

== ENCOUNTER → 2021-06-04 12:06 | Outpatient (BNVA) | payer MEDICARE, SELFPAY | PROVIDERS: PCP Internal Medicine; Visit Provider Psychiatry & Neurology Psychiatry | DX: F42.9 Obsessive-compulsive disorder, unspecified (principal); F41.1 Generalized anxiety disorder; F12.20 Cannabis dependence, uncomplicated; F17.200 Nicotine dependence, unspecified, uncomplicated | CPT/HCPCS: 99214 ==

== ENCOUNTER 2021-06-08 13:00 | Outpatient (CLI) | payer MEDICARE, SELFPAY ==
--- NOTE | 2021-06-08 13:00 | CT_ITS ---
WS: [id number] LDCT LUNG CANCER SCREENING HISTORY: Nicotine Dependence TECHNIQUE: Axial imaging performed from the apices to 1 cm below the costophrenic angles. Coronal and sagittal reformats are submitted with axial MIP series. All CT scans at [facility] use at least one of these dose optimization techniques: automated exposure control; mA and/or kV adjustment per patient size (includes targeted exams where dose is matched to clinical indication); or iterativ e reconstruction. DLP: 58.15 mGy.cm DIvol: 1.58 mGy COMPARISON: 04/22/2020 Diagnostic quality: Satisfactory Lung Nodules: No pulmonary nodule. No endobronchial lesions. Lungs: Moderate chronic emphysema with centrilobular and paraseptal emphysematous changes. Heart: Normal size with no effusion. Other findings: Small stable mediastinal and hilar lymph nodes. Mild atherosclerosis aorta. Normal si ze pulmonary artery. Small hiatal hernia. CT/CT lung screening [id number] IMPRESSION: LUNG-RADS: 1-Negative FOLLOW UP: 12 Month: Continue annual screening with LDCT OTHER FINDINGS (S MODIFIER): None.
--- NOTE | 2021-06-08 13:37 | PFTS_ITS ---
Date of Study:06/08/21 Date of Dictation: 06/09/2021 MECHANICS: Prebronchodilator forced vital capacity (FVC) is normal. Prebronchodilator forced expiratory volume in one second (FEV1) is normal. FEV1/FVC is normal. There is no significant broncho-dilator response FLOW VOLUME LOOP: Normal . LUNG VOLUMES: Not measured DIFFUSING CAPACITY FOR CARBON MONOXIDE: Not measured . INTERPRETATION: The prebronchodilator spirometry is normal. MTDD
== END 2021-06-08 13:01 | disposition home or self-care (01) ==
LOC: RT 13:06
PROVIDERS: PCP Internal Medicine; Visit Provider Internal Medicine Pulmonary Disease
DX: Z12.2 Encounter for screening for malignant neoplasm of respiratory organs (principal); F17.210 Nicotine dependence, cigarettes, uncomplicated; R06.00 Dyspnea, unspecified
CPT/HCPCS: 71271; 94010; 94618

== ENCOUNTER → 2021-06-15 13:52 | Outpatient (BNVA) | payer MEDICARE, SELFPAY | PROVIDERS: PCP Internal Medicine; Visit Provider Internal Medicine | DX: R41.3 Other amnesia (principal); R53.83 Other fatigue | CPT/HCPCS: 80053; 82607; 82746; 83550; 84443 ==

== ENCOUNTER → 2021-07-02 11:39 | Outpatient (BNVA) | payer MEDICARE, SELFPAY | PROVIDERS: PCP Internal Medicine; Visit Provider Psychiatry & Neurology Psychiatry | DX: F42.9 Obsessive-compulsive disorder, unspecified (principal); F41.1 Generalized anxiety disorder; F17.200 Nicotine dependence, unspecified, uncomplicated; F12.20 Cannabis dependence, uncomplicated | CPT/HCPCS: 99213 ==

== ENCOUNTER 2021-07-08 15:08 | Outpatient (CLI) | payer MEDICARE, SELFPAY ==
--- NOTE | 2021-07-08 15:14 | XR_ITS ---
WS: [id number] CHEST 2 VIEWS HISTORY: rule out pneumonia COMPARISON: 10/24/2019 Lungs: Mild hyperinflation of the lungs. No pneumonia. Normal vasculature. Cardiac size: Normal. Mediastinum/Aorta: Normal mediastinum. Bones: Prior anterior cervical fusion. XR/XR chest 2V* [id number] IMPRESSION: Chronic emphysema. No pneumonia.
[2021-07-08 15:34] LABS: Basophils # 0.1 10^3/uL (0.0-0.1); Basophils % 0.9 %; Eosinophils # 0.2 10^3/uL (0.0-0.8); Eosinophils % 2.5 %; Hematocrit 50.2 % (42.0-52.0); Hemoglobin 16.3 g/dL (11.7-16.6); Lymphocytes # 1.7 10^3/uL (0.8-4.8); Lymphocytes % 26.3 %; Mean Corpuscular HGB Conc 32.5 g/dL (30.0-36.0); Mean Corpuscular Hemoglobin 30.1 pg (28.0-34.0); Mean Corpuscular Volume 92.6 fl (80-94); Mean Platelet Volume 8.4 fL (7.4-10.4); Monocytes # 0.6 10^3/uL (0.2-0.9); Neutrophils % 59.7 %; Nucleated Red Blood Cells % 0 %; Platelet Count 394 10^3/cmm (130-400); Red Blood Count 5.42 10^6/uL (4.1-5.3); Red Cell Distribution Width 12.3 % (12.1-15.1); White Blood Count 6.4 10^3/uL (4.0-10.0)
[2021-07-08 16:09] LABS: Alanine Aminotransferase 17 U/L (0-41); Albumin Level 3.9 g/dL (3.5-5.2); Alkaline Phosphatase 109 IU/L (40-130); Anion Gap 13.3 (5-19); Aspartate Amino Transferase 12 U/L (0-40); Blood Urea Nitrogen 14 mg/dL (8-23); Calcium 9.2 mg/dL (8.5-10.5); Carbon Dioxide 27 mmol/L (22-29); Chloride 97 mmol/L (98-107); Globulin 2.4 g/dL (1.3-4.6); Glucose 98 mg/dL (65-115); Osmolality Calculated 276 mOsm/kg (285-295); Potassium 4.3 mmol/L (3.5-5.1); Sodium 133 mmol/L (136-145); Total Bilirubin 0.4 mg/dL (0.15-1.2); Total Protein 6.3 g/dL (6.6-8.7)
== END 2021-07-08 15:09 | disposition home or self-care (01) ==
LOC: RAD 15:13
PROVIDERS: PCP Internal Medicine; Visit Provider Internal Medicine Pulmonary Disease
DX: J44.9 Chronic obstructive pulmonary disease, unspecified; R05.9 Cough, unspecified
CPT/HCPCS: 36415; 71046; 80053; 85025

== ENCOUNTER → 2021-07-30 14:15 | Outpatient (BNVA) | payer MEDICARE, SELFPAY | PROVIDERS: PCP Internal Medicine; Visit Provider Psychiatry & Neurology Psychiatry | DX: F42.9 Obsessive-compulsive disorder, unspecified (principal); F41.1 Generalized anxiety disorder; F17.200 Nicotine dependence, unspecified, uncomplicated; F12.20 Cannabis dependence, uncomplicated | CPT/HCPCS: 99214 ==

== ENCOUNTER 2021-08-18 06:52 | Outpatient (CLI) | payer MEDICARE, SELFPAY ==
--- NOTE | 2021-08-18 07:07 | NMCV_ITS ---
NM luis carlos perf SPECT r/s* [id number] Bull Combs Age: 60 Gender: M : 1960 Exam Date: 08/18/2021 07:59 Ordering Phys: Per Ratliff M.D ([email or web address]) Technologist: JACQUELINE Singh Exam Location: [facility] Indications: SHORTNESS OF BREATH STRESS TEST Please see separate stress test report in [facility] for full findings IMAGE PROTOCOL Rest/Stress 1 Lexiscan Day Radiopharmaceutical Dose (mCi) Administration Site Administered by Rest: Tc-99m 10.8 IV JACQUELINE House Sestamibi Stress:Tc-99m 32.8 IV JACQUELINE House Sestamibi Rest: 18-Aug-2021 60 Discovery 630 Stress: 18-Aug-2021 30 Discovery 630 0.4mg Lexiscan. Images obtained in supine and prone position. SPECT RESULTS Technical Quality: Excellent Raw Data Analysis: Normal Image Corrections: No attenuation or motion correction applied Summed Stress Score: 3 Summed Rest Score: 11 Summed Difference Score: 0 PERFUSION FINDINGS There is persistently low radiotracer uptake in apical inferior and apical septal john. This is likely secondary to attenuation artifact. FUNCTIONAL RESULTS (calculated via Gated SPECT) Stress Image LV EF (%): 59 Stress EDV (mL):119 TID: 1.24 Stress ESV (mL):49 FUNCTIONAL FINDINGS: There is normal left ventricular systolic function. IMPRESSIONS 1. Fixed perfusion defect noted in the apical inferior and apical septal john. This is likely secondary to attenuation artifact. No evidence of ischemia 2. LV systolic function is normal. 3. Elevated TID which can represent subendocardial ischemia Per Ratliff MD (Electronically Signed) Final Date: 19 August 2021 10:19 S
--- NOTE | 2021-08-18 07:07 | ECG_ITS ---
[facility] Test Date: 2021-08-18 Pat Name: Bull Combs Department: Room: Gender: Male Willow Machine Tender: Sherri Lau : 1960 Requested By: Per Ratliff Order Number: [id number] Baljeet MD: Per Ratliff M.D. Interpretive Statements NAME OF STUDY: LEXISCAN SESTAMIBI STRESS TEST INDICATION: [Chest Pain; Dyspnea, ] Procedure: At the baseline, the blood pressure was 136/88 mmHg with a heart rate of 71 bpm. The electrocardiogram showed normal sinus rhythm, normal axis with normal ST and T's. The Lexiscan was infused over a period of 20 seconds. A total of 0.4 mg of Lexiscan was infused. The stress phase was continued for a total of 5 minutes. Heart rate was at the end of stress phase was 86 bpm and a blood pressure of 127/75 mmHg. The EKG at the peak infusion revealed since normal sinus rhythm with no significant ST-T wave changes. Sestamibi was injected 20 seconds after the Lexiscan infusion. Blood pressure at the end of recovery phase was 134/86 mmHg with a heart rate of 73 bpm. Conclusion: 1. Normal EKG response to Lexiscan infusion 2. No Lexiscan induced chest pain or cardiac arrhythmia. 3. Normal blood pressure and heart rate response. 4. Sestamibi/sestamibi perfusion scan pending; see separate report. Electronically Signed On 09-04-2021 12:48:23 PLANT UTILITIES ENGINEER by Per Ratliff M.D. [id number]
[2021-08-18 07:08] VITALS: BMI 24.6
[2021-08-18] MEDS: regadenoson 0.4 Mg/5 ml Syringe IVP (08:32)
[2021-08-18 08:44] VITALS: BP 134/86; PULSE 73
== END 2021-08-18 06:53 | disposition home or self-care (01) ==
LOC: CDL 06:53
PROVIDERS: PCP Internal Medicine; Visit Provider Internal Medicine
DX: R07.9 Chest pain, unspecified (principal); R06.00 Dyspnea, unspecified; R06.02 Shortness of breath
CPT/HCPCS: 78452; 93017; A9500; J2785

== ENCOUNTER → 2021-09-01 10:00 | Outpatient (BNVA) | payer MEDICARE, SELFPAY | PROVIDERS: PCP Internal Medicine; Visit Provider Internal Medicine | DX: R53.83 Other fatigue (principal) | CPT/HCPCS: 84403 ==

== ENCOUNTER → 2021-10-01 12:45 | Outpatient (BNVA) | payer MEDICARE, SELFPAY | PROVIDERS: PCP Internal Medicine; Visit Provider Psychiatry & Neurology Psychiatry | DX: F42.9 Obsessive-compulsive disorder, unspecified (principal); F41.1 Generalized anxiety disorder; F17.200 Nicotine dependence, unspecified, uncomplicated; F12.20 Cannabis dependence, uncomplicated; F15.21 Other stimulant dependence, in remission; F33.2 Major depressive disorder, recurrent severe without psychotic features | CPT/HCPCS: 99213 ==

== ENCOUNTER → 2021-12-24 12:48 | Outpatient (BNVA) | payer MEDICARE, OTHER, SELFPAY | PROVIDERS: PCP Internal Medicine; Visit Provider Psychiatry & Neurology Psychiatry | DX: F42.9 Obsessive-compulsive disorder, unspecified (principal); F41.1 Generalized anxiety disorder; F17.200 Nicotine dependence, unspecified, uncomplicated; F12.20 Cannabis dependence, uncomplicated | CPT/HCPCS: 99213 ==

== ENCOUNTER 2022-05-17 15:09 | Outpatient (CLI) | payer MEDICARE, MEDICAID, SELFPAY ==
[2022-05-17 15:54] LABS: Add Urine Microscopic? NO; Charge for UA Resulting for Rev
[2022-05-17 16:13] LABS: Bilirubin Urine Neg (Negative); Blood Urine Neg (Negative); Glucose Urine UA Norm (Normal); Ketones Urine Negative (Negative); Leukocyte Esterase Urine Negative (Negative); Nitrate Urine Negative (Negative); Protein Urine Neg (Negative); Urine Appearance Clear (CLEAR); Urine Color Yellow (Yellow); Urobilinogen Urine Norm (Negative); pH Urine 7 (5-7)
== END 2022-05-17 15:10 | disposition home or self-care (01) ==
LOC: LAB 15:14
PROVIDERS: PCP Internal Medicine; Visit Provider Internal Medicine
DX: N40.1 Benign prostatic hyperplasia with lower urinary tract symptoms (principal); R39.11 Hesitancy of micturition
CPT/HCPCS: 81003; 84153

== ENCOUNTER → 2022-06-28 12:52 | Outpatient (BNVA) | payer MEDICARE, MEDICAID, OTHER, SELFPAY | PROVIDERS: PCP Internal Medicine; Visit Provider Nurse Practitioner Psychiatric/Mental Health | DX: F42.9 Obsessive-compulsive disorder, unspecified (principal); F41.1 Generalized anxiety disorder; F17.200 Nicotine dependence, unspecified, uncomplicated; Z79.899 Other long term (current) drug therapy | CPT/HCPCS: 80053 ==

== ENCOUNTER → 2022-08-09 10:39 | Outpatient (BNVA) | payer MEDICARE, MEDICAID, SELFPAY | PROVIDERS: PCP Family Medicine Adult Medicine; Visit Provider Family Medicine Adult Medicine | DX: I10 Essential (primary) hypertension (principal); M54.2 Cervicalgia; M54.9 Dorsalgia, unspecified; G89.29 Other chronic pain; M53.3 Sacrococcygeal disorders, not elsewhere classified; E78.00 Pure hypercholesterolemia, unspecified | CPT/HCPCS: 80061; 85025; 86431 ==

== ENCOUNTER 2022-08-17 09:58 | Outpatient (CLI) | payer MEDICARE, MEDICAID, SELFPAY ==
--- NOTE | 2022-08-17 10:00 | CT_ITS ---
WS: [id number] LDCT LUNG CANCER SCREENING HISTORY: lung screening TECHNIQUE: Axial imaging performed from the apices to 1 cm below the costophrenic angles. Coronal and sagittal reformats are submitted with axial MIP series. All CT scans at [facility] use at least one of these dose optimization techniques: automated exposure control; mA and/or kV adjustment per patient size (includes targeted exams where dose is matched to clinical indication); or iterativ e reconstruction. DLP: 85.21 mGy.cm DIvol: Mean CTDIvol: 1.60 (mGy) COMPARISON: 06/08/2021 Diagnostic quality: Satisfactory Lung Nodules: No mass or nodule or endobronchial lesions are identified. Lungs: Marked hyperexpansion and paraseptal emphysema. Mild peripheral interstitial thickening. Heart: Normal size heart. No pericardial effusion. Other findings: Small hiatal hernia. No adenopathy identified. Minimal atherosclerosis aorta. No adre nal mass. CT/CT lung screening [id number] IMPRESSION: LUNG-RADS: 1-Negative FOLLOW UP: 12 Month: Continue annual screening with LDCT OTHER FINDINGS (S MODIFIER): None.
== END 2022-08-17 09:59 | disposition home or self-care (01) ==
LOC: RAD 09:58
PROVIDERS: PCP Family Medicine Adult Medicine; Visit Provider Internal Medicine Pulmonary Disease
DX: Z12.2 Encounter for screening for malignant neoplasm of respiratory organs (principal); F17.210 Nicotine dependence, cigarettes, uncomplicated
CPT/HCPCS: 71271

== ENCOUNTER → 2022-10-28 09:22 | Outpatient (BNVA) | payer MEDICARE, MEDICAID, SELFPAY | PROVIDERS: PCP Family Medicine Adult Medicine; Visit Provider Internal Medicine Pulmonary Disease | DX: J44.9 Chronic obstructive pulmonary disease, unspecified (principal); G47.33 Obstructive sleep apnea (adult) (pediatric); R49.0 Dysphonia; R05.3 Chronic cough; F17.210 Nicotine dependence, cigarettes, uncomplicated; Z98.890 Other specified postprocedural states; K21.9 Gastro-esophageal reflux disease without esophagitis | CPT/HCPCS: 99214 ==

== ENCOUNTER → 2023-01-10 14:13 | Outpatient (BNVA) | payer MEDICARE, MEDICAID, SELFPAY | PROVIDERS: PCP Family Medicine Adult Medicine; Visit Provider Internal Medicine | DX: R06.00 Dyspnea, unspecified (principal); I10 Essential (primary) hypertension; R07.89 Other chest pain; F17.210 Nicotine dependence, cigarettes, uncomplicated | CPT/HCPCS: 99214 ==

== ENCOUNTER → 2023-01-19 12:23 | Outpatient (BNVA) | payer MEDICARE, MEDICAID, SELFPAY | PROVIDERS: PCP Family Medicine Adult Medicine; Visit Provider Family Medicine Adult Medicine | DX: L72.0 Epidermal cyst (principal); I10 Essential (primary) hypertension; E78.00 Pure hypercholesterolemia, unspecified; G89.29 Other chronic pain; M53.3 Sacrococcygeal disorders, not elsewhere classified; R41.3 Other amnesia; M54.2 Cervicalgia; M54.9 Dorsalgia, unspecified | CPT/HCPCS: 80053; 84443; 85025; 85651 ==

== ENCOUNTER 2023-01-24 14:11 | Outpatient (CLI) | payer MEDICARE, MEDICAID, SELFPAY ==
--- NOTE | 2023-01-24 14:45 | USR_ITS ---
PROCEDURE INFORMATION: Exam: US Duplex Lower Extremity Arteries Exam date and time: 01/24/2023 3:01 PM Age: 62 years old Clinical indication: Pain; Leg, lower; Bilateral; Additional info: Leg pain, bilateral TECHNIQUE: Imaging protocol: Real-time ultrasound scan of the arteries of the bilateral lower extremities with 2-D mckeon scale, color Doppler flow and spectral waveform analysis. Images documented and saved. COMPARISON: No relevant prior studies available. FINDINGS: Right common femoral artery: No occlusion or significant stenosis. Normal waveform. Right superficial femoral artery: No occlusion or significant stenosis. Normal waveform. Right popliteal artery: No occlusion or significant stenosis. Normal waveform. Right calf/foot arteries: No occlusion or significant stenosis in the visualized arteries. Normal waveforms. Dorsalis pedis artery is patent. Left common femoral artery: No occlusion or significant stenosis. Normal waveform. Left superficial femoral artery: No occlusion or significant stenosis. Normal waveform. Left popliteal artery: No occlusion or significant stenosis. Normal waveform. Left calf/foot arteries: No occlusion or significant stenosis in the visualized arteries. Normal waveforms. Dorsalis pedis artery is patent. US/CV arterial duplex [facility] [id number] IMPRESSION: No stenosis or occlusion.
== END 2023-01-24 14:12 | disposition home or self-care (01) ==
LOC: RAD 14:18
PROVIDERS: PCP Family Medicine Adult Medicine; Visit Provider Internal Medicine
DX: I73.9 Peripheral vascular disease, unspecified (principal); M79.605 Pain in left leg; M79.604 Pain in right leg
CPT/HCPCS: 93925

== ENCOUNTER → 2023-02-02 15:13 | Outpatient (BNVA) | payer MEDICARE, MEDICAID, SELFPAY | PROVIDERS: PCP Family Medicine Adult Medicine; Referring Provider Family Medicine Adult Medicine; Visit Provider Orthopaedic Surgery | DX: M47.812 Spondylosis without myelopathy or radiculopathy, cervical region (principal); M48.02 Spinal stenosis, cervical region; Z98.1 Arthrodesis status | CPT/HCPCS: 72050; 99204 ==

== ENCOUNTER 2023-03-17 13:20 | Outpatient (CLI) | payer MEDICARE, SELFPAY ==
--- NOTE | 2023-03-17 13:30 | USCV_ITS ---
Bull Combs Age: 62 Gender: M : 1960 Exam Date: 03/17/2023 13:40 Ordering Phys: Per Ratliff M.D ([email or web address]) Technologist: GARRIOSN Exam Location: [facility] [place] Indication: CHEST PAIN AND SHORTNESS OF BREATH BP: 140 / 72 HR: 89 Rhythm: Sinus Technical Quality: Adequate MEASUREMENTS (Male / Female) Normal Values 2D ECHO LVOT Diameter 2.0 cm LV Ejection Fraction MOD 2C 61.2 % LV Ejection Fraction 2C AL 60.5 % LA Diameter 3.1 cm LA Width 2.4 cm LA Height 3.9 cm RA Width 3.8 cm RA Height 4.1 cm Aorta at Sinotubular Diameter 2.4 cm IVC Diameter 1.4 cm M-MODE Aortic Annulus Diameter 3.0 cm LA Ao Ratio MM 1.1 MV E Point Septal Separation 0.4 cm DOPPLER AV Peak Velocity 144.0 cm/s LVOT Peak Velocity 132.0 cm/s AV Area Cont Eq vti 3.5 cm squared AV Area Cont Eq pk 2.9 cm squared MV Peak Velocity 103.0 cm/s MV Area PHT 4.2 cm squared Mitral E to A Ratio 0.8 MV E' Velocity 42.5 cm/s Mitral E to MV E' Ratio 6.4 Mitral E to LV E' Lateral Ratio 5.6 Mitral E to LV E' Septal Ratio 7.7 TR Peak Velocity 226.5 cm/s TR Peak Gradient 20.5 mmHg TR Mean Velocity 200.1 cm/s TR Mean Gradient 15.9 mmHg TR Velocity Time Integral 72.5 cm TV Peak E Velocity 51.0 cm/s Right Atrial Pressure 3.0 mmHg Pulmonary Artery Systolic Pressu 23.5 mmHg PV Peak Velocity 125.0 cm/s RV Acceleration Time 0.1 s RV Ejection Time 0.3 s RV AcT/ET 0.5 FINDINGS Left Ventricle Left ventricle is normal in size. LV systolic function is normal with EF of 60 to 65%. No regional wall motion abnormalities are seen. Grade 1 diastolic dysfunction Right Ventricle Normal in size and function Right Atrium Normal in size Left Atrium Normal in size Mitral Valve Structurally normal mitral valve. Trace mitral regurgitation Aortic Valve Structurally normal aortic valve. No significant stenosis or regurgitation. Tricuspid Valve Mild tricuspid regurgitation. Pulmonary artery systolic pressure is normal. Pulmonic Valve Not well-visualized Pericardium Normal Aorta Normal in size IVC Appears to be normal CONCLUSIONS LV systolic function is normal with EF of 60 to 65%. Grade 1 diastolic dysfunction Trace mitral regurgitation Mild tricuspid regurgitation No comparison studies are available. Per Ratliff MD (Electronically Signed) Final Date: 18 March 2023 11:06 S
== END 2023-03-17 13:21 | disposition home or self-care (01) ==
LOC: RAD 13:23
PROVIDERS: PCP Family Medicine Adult Medicine; Visit Provider Internal Medicine
DX: R07.9 Chest pain, unspecified (principal); R06.02 Shortness of breath; I07.1 Rheumatic tricuspid insufficiency
CPT/HCPCS: 93306

== ENCOUNTER → 2023-04-24 10:51 | Outpatient (BNVA) | payer MEDICARE, SELFPAY | PROVIDERS: PCP Family Medicine Adult Medicine; Visit Provider Emergency Medicine | DX: R60.9 Edema, unspecified (principal); R60.0 Localized edema | CPT/HCPCS: 80053; 83880 ==

== ENCOUNTER → 2023-04-27 09:40 | Outpatient (BNVA) | payer MEDICARE, SELFPAY | PROVIDERS: PCP Family Medicine Adult Medicine; Visit Provider Internal Medicine Pulmonary Disease | DX: G47.33 Obstructive sleep apnea (adult) (pediatric) (principal); J44.9 Chronic obstructive pulmonary disease, unspecified; R49.0 Dysphonia; F17.210 Nicotine dependence, cigarettes, uncomplicated; K21.9 Gastro-esophageal reflux disease without esophagitis; Z98.890 Other specified postprocedural states; R07.9 Chest pain, unspecified | CPT/HCPCS: 99214 ==

== ENCOUNTER 2023-05-10 08:52 | Outpatient (CLI) | payer MEDICARE, SELFPAY ==
--- NOTE | 2023-05-10 09:45 | CT_ITS ---
WS: [id number] LDCT LUNG CANCER SCREENING HISTORY: lung camcer screening TECHNIQUE: Axial imaging performed from the apices to 1 cm below the costophrenic angles. Coronal and sagittal reformats are submitted with axial MIP series. All CT scans at [facility] use at least one of these dose optimization techniques: automated exposure control; mA and/or kV adjustment per patient size (includes targeted exams where dose is matched to clinical indication); or iterativ e reconstruction. DLP: 59.82 mGy.cm DIvol: Mean CTDIvol: 1.20 (mGy) COMPARISON: 08/17/2022 Diagnostic quality: Satisfactory Lungs: Marked centrilobular and paraseptal emphysema. No pulmonary mass, nodule or groundglass attenu ation. No endobronchial lesions. Heart: Normal size heart with no pericardial effusion.. Other findings: Very mild atherosclerosis aorta. No adenopathy. Small hiatal hernia. No adrenal mass. Prior cervical fusion is incompletely visualized. IMPRESSION: CT/CT lung screening [id number] LUNG-RADS: 1-Negative FOLLOW UP: 12 Month: Continue annual screening with LDCT OTHER FINDINGS (S MODIFIER): None.
== END 2023-05-10 08:53 | disposition home or self-care (01) ==
PROVIDERS: PCP Family Medicine Adult Medicine; Visit Provider Internal Medicine Pulmonary Disease
DX: Z12.2 Encounter for screening for malignant neoplasm of respiratory organs (principal); F17.200 Nicotine dependence, unspecified, uncomplicated; G47.33 Obstructive sleep apnea (adult) (pediatric)
CPT/HCPCS: 71271

== ENCOUNTER → 2023-07-18 13:52 | Outpatient (BNVA) | payer MEDICARE, SELFPAY | PROVIDERS: PCP Family Medicine Adult Medicine; Visit Provider Internal Medicine | DX: R06.00 Dyspnea, unspecified (principal); I10 Essential (primary) hypertension; F17.210 Nicotine dependence, cigarettes, uncomplicated | CPT/HCPCS: 99214 ==

== ENCOUNTER → 2023-07-28 08:27 | Outpatient (BNVA) | payer MEDICARE, SELFPAY | PROVIDERS: PCP Family Medicine Adult Medicine; Visit Provider Family Medicine Adult Medicine | DX: I10 Essential (primary) hypertension (principal); J44.9 Chronic obstructive pulmonary disease, unspecified; E78.00 Pure hypercholesterolemia, unspecified; G43.109 Migraine with aura, not intractable, without status migrainosus; Z79.899 Other long term (current) drug therapy | CPT/HCPCS: 80053; 80061; 83036 ==

== ENCOUNTER → 2023-08-09 11:36 | Outpatient (BNVA) | payer MEDICARE, SELFPAY | PROVIDERS: PCP Family Medicine Adult Medicine; Visit Provider Family Medicine Adult Medicine | DX: L81.9 Disorder of pigmentation, unspecified (principal) | CPT/HCPCS: 88304 ==

== ENCOUNTER → 2023-11-30 13:44 | Outpatient (BNVA) | payer MEDICARE, SELFPAY | PROVIDERS: PCP Family Medicine Adult Medicine; Referring Provider Family Medicine Adult Medicine; Visit Provider Orthopaedic Surgery | DX: M47.22 Other spondylosis with radiculopathy, cervical region (principal) | CPT/HCPCS: 99214 ==

== ENCOUNTER → 2024-01-17 09:07 | Outpatient (BNVA) | payer MEDICARE, OTHER, SELFPAY | PROVIDERS: PCP Family Medicine Adult Medicine; Visit Provider Internal Medicine Pulmonary Disease | DX: G47.33 Obstructive sleep apnea (adult) (pediatric) (principal); J44.9 Chronic obstructive pulmonary disease, unspecified; R49.0 Dysphonia; F17.210 Nicotine dependence, cigarettes, uncomplicated | CPT/HCPCS: 99214 ==

== ENCOUNTER 2024-01-24 15:49 | Outpatient (CLI) | payer MEDICARE, SELFPAY ==
--- NOTE | 2024-01-24 16:00 | MR_ITS ---
WS: [id number] MRI CERVICAL SPINE NONCONTRAST HISTORY: neck pain COMPARISON: 11/11/2019 Technique: Multiplanar, multisequence noncontrast imaging of the cervical spine. Since the prior MRI of 11/11/2019 patient has undergone anterior cervical disc fusion from C5-C7 with i nterbody spacers. Very slight straightening of the normal lordosis. Interval progression of advancing central stenosis. Signal within the cervical cord is normal. Visualized posterior fossa is unremarkable. Craniocervical junction, C1 and C2 relationship, odontoid process and soft tissues are normal. C2-C3: There is slight disc bulging. No stenosis. C3-C4: New central disc protrusion contacting the ventral cervical cord. Effacement of CSF with advan cing facet joint arthritis encroaching posteriorly. Moderate to severe central stenosis with mild for aminal stenosis. C4-C5: Mild osteophytic ridging and slight retrolisthesis of C4. Increasing effacement of CSF. Modera te facet joint arthritis. Mild central and bilateral foraminal stenosis. C5-C6: Mild disc bulging. No high-grade stenosis. C6-C7: Mild osteophytic ridging and facet arthritis. Osteophytic ridging is causing mild encroachment upon the thecal sac with mild to moderate foraminal stenosis. C7-T1: Moderate osteophytic ridging encroaching upon the foramina and the central canal. Facet joint arthritis. Mild central and bilateral foraminal stenosis. T1-2: Seen only on the sagittal image is a disc protrusion in the RIGHT foramen. New since the prior study. Paraspinal soft tissue are normal. MR/MR cervical spin wo con* [id number] IMPRESSION: 1. Since the prior MRI of 11/11/2019 anterior cervical fusion with interbody spa cers from C5-C7. 2. Interval progression of multilevel degenerative disc disease and osteophyto sis and stenoses since the prior examination. 3. New central disc protrusion at C3-4 contacting the ventral cervical cord. M oderate to severe central stenosis with mild bilateral foraminal stenosis. 4. C4-5: Mild central and bilateral foraminal stenosis with increasing effacem ent of CSF and moderate facet arthropathy. 5. C6-7: Osteophytic ridging encroaching upon the ventral thecal sac with mild to moderate foraminal stenosis. 6. C7-T1: Mild central and bilateral foraminal stenosis predominantly due to o steophyte and facet disease. 7. New small RIGHT foraminal disc protrusion at T1-T2 seen only on the sagitta l projections.
== END 2024-01-24 15:50 | disposition home or self-care (01) ==
LOC: RAD 15:50
PROVIDERS: PCP Family Medicine Adult Medicine; Visit Provider Orthopaedic Surgery
DX: M50.21 Other cervical disc displacement, high cervical region (principal); Z98.1 Arthrodesis status; G31.89 Other specified degenerative diseases of nervous system; M48.02 Spinal stenosis, cervical region; M47.892 Other spondylosis, cervical region; M25.78 Osteophyte, vertebrae; M48.03 Spinal stenosis, cervicothoracic region; M51.24 Other intervertebral disc displacement, thoracic region
CPT/HCPCS: 72141

== ENCOUNTER → 2024-02-20 10:53 | Outpatient (BNVA) | payer MEDICARE, MEDICAID, SELFPAY | PROVIDERS: PCP Family Medicine Adult Medicine; Visit Provider Orthopaedic Surgery | DX: M54.2 Cervicalgia (principal); M54.9 Dorsalgia, unspecified; G89.29 Other chronic pain | CPT/HCPCS: 72050; 99214 ==

== ENCOUNTER → 2024-04-03 09:53 | Outpatient (BNVA) | payer MEDICARE, SELFPAY | PROVIDERS: PCP Family Medicine Adult Medicine; Visit Provider Family Medicine Adult Medicine | DX: I10 Essential (primary) hypertension (principal); E78.00 Pure hypercholesterolemia, unspecified; M54.2 Cervicalgia; M54.9 Dorsalgia, unspecified; G89.29 Other chronic pain; F17.210 Nicotine dependence, cigarettes, uncomplicated | CPT/HCPCS: 80053; 80061; 85025 ==

== ENCOUNTER → 2024-05-16 15:38 | Outpatient (BNVA) | payer MEDICARE, SELFPAY | PROVIDERS: PCP Family Medicine Adult Medicine; Visit Provider Internal Medicine Critical Care Medicine | DX: Z12.2 Encounter for screening for malignant neoplasm of respiratory organs; J84.10 Pulmonary fibrosis, unspecified; R06.09 Other forms of dyspnea; J44.9 Chronic obstructive pulmonary disease, unspecified; K21.9 Gastro-esophageal reflux disease without esophagitis; F17.210 Nicotine dependence, cigarettes, uncomplicated; Z71.6 Tobacco abuse counseling; Z71.89 Other specified counseling | CPT/HCPCS: 99214 ==

== ENCOUNTER → 2024-09-26 15:00 | Outpatient (BNVA) | payer MEDICARE, SELFPAY | PROVIDERS: PCP Family Medicine Adult Medicine; Referring Provider Orthopaedic Surgery; Visit Provider Specialist | DX: M65.331 Trigger finger, right middle finger (principal); M47.22 Other spondylosis with radiculopathy, cervical region; M54.2 Cervicalgia; M54.9 Dorsalgia, unspecified; G89.29 Other chronic pain | CPT/HCPCS: 95907; 95908 ==

== ENCOUNTER → 2024-10-02 10:47 | Outpatient (BNVA) | payer MEDICARE, SELFPAY | PROVIDERS: PCP Family Medicine Adult Medicine | DX: R79.89 Other specified abnormal findings of blood chemistry (principal) | CPT/HCPCS: 84403 ==

== ENCOUNTER → 2024-10-22 10:52 | Outpatient (BNVA) | payer MEDICARE, SELFPAY | PROVIDERS: PCP Family Medicine Adult Medicine; Visit Provider Orthopaedic Surgery | DX: M47.22 Other spondylosis with radiculopathy, cervical region (principal) | CPT/HCPCS: 99214 ==

== ENCOUNTER 2024-10-24 11:21 | Outpatient (CLI) | payer MEDICARE, SELFPAY ==
[2024-10-24 11:40] LABS: Add Urine Microscopic? NO
[2024-10-24 11:43] LABS: Basophils # 0.1 10^3/uL (0.0-0.1); Basophils % 1.1 %; Eosinophils # 0.3 10^3/uL (0.0-0.8); Eosinophils % 3.9 %; Lymphocytes # 1.8 10^3/uL (0.8-4.8); Lymphocytes % 24.2 %; Mean Corpuscular HGB Conc 33.2 g/dL (30-55); Mean Corpuscular Hemoglobin 30.9 pg (27-33); Mean Corpuscular Volume 93.1 fl (82-101); Monocytes # 0.7 10^3/uL (0.2-0.9); Monocytes % 9.5 %; Neutrophils # 4.53 10^3/uL (1.8-7.7); Neutrophils % 60.5 %; Nucleated Red Blood Cells % 0 %; Platelet Count 259 10^3/cmm (157-399); Red Blood Count 5.05 10^6/uL (3.85-5.65); Red Cell Distribution Width 12.2 % (12.1-15.1); White Blood Count 7.48 10^3/uL (3.29-11.43)
[2024-10-24 11:58] LABS: Alanine Aminotransferase 18 U/L (0-41); Albumin Level 4.1 g/dL (3.5-5.2); Alkaline Phosphatase 114 U/L (40-130); Anion Gap 14.9 (5-19); Aspartate Amino Transferase 19 U/L (0-40); Blood Urea Nitrogen 18 mg/dL (8-23); Calcium 9.1 mg/dL (8.5-10.5); Carbon Dioxide 27 mmol/L (22-29); Chloride 100 mmol/L (98-107); Globulin 2.5 g/dL (1.3-4.6); Glucose 103 mg/dL (65-115); Osmolality Calculated 286 mOsm/kg (285-295); Potassium 4.9 mmol/L (3.5-5.1); Sodium 137 mmol/L (136-145); Total Bilirubin 0.3 mg/dL (0.15-1.2); Total Protein 6.6 g/dL (6.6-8.7)
[2024-10-24 13:01] LABS: Add Urine Culture? No; Bilirubin Urine Neg (Negative); Blood Urine Neg (Negative); Glucose Urine UA Norm (Normal); Ketones Urine Negative (Negative); Leukocyte Esterase Urine Negative (Negative); Nitrate Urine Negative (Negative); Protein Urine Neg (Negative); Urine Appearance Clear (CLEAR); Urine Color Yellow (Yellow); Urobilinogen Urine Norm (Negative); pH Urine 6 (5-7)
[2024-10-24 13:02] LABS: Charge for UA Resulting for Rev
== END 2024-10-24 11:22 | disposition home or self-care (01) ==
LOC: RAD 11:22
PROVIDERS: PCP Family Medicine Adult Medicine; Visit Provider Orthopaedic Surgery
DX: Z01.818 Encounter for other preprocedural examination (principal)
CPT/HCPCS: 36415; 80053; 81003; 85025

== ENCOUNTER → 2024-11-05 08:36 | Outpatient (BNVA) | payer MEDICARE, SELFPAY | PROVIDERS: PCP Family Medicine Adult Medicine; Visit Provider Family Medicine | DX: Z01.818 Encounter for other preprocedural examination (principal) | CPT/HCPCS: 93005 ==

== ENCOUNTER → 2024-12-23 11:28 | Outpatient (BNVA) | payer MEDICARE, SELFPAY | PROVIDERS: PCP Family Medicine Adult Medicine; Visit Provider Family Medicine | DX: E53.8 Deficiency of other specified B group vitamins (principal); R53.83 Other fatigue; E29.1 Testicular hypofunction; N40.1 Benign prostatic hyperplasia with lower urinary tract symptoms; R53.81 Other malaise; E55.9 Vitamin D deficiency, unspecified | CPT/HCPCS: 82306; 82607; 84153; 84403; 84439; 84443 ==

== ENCOUNTER → 2025-01-07 14:42 | Outpatient (BNVA) | payer MEDICARE, SELFPAY | PROVIDERS: PCP Family Medicine Adult Medicine; Visit Provider Student in an Organized Health Care Education/Training Program | DX: M65.331 Trigger finger, right middle finger (principal) | CPT/HCPCS: 20600; 73130; 99204; J3301; J3490 ==

== ENCOUNTER → 2025-01-21 15:18 | Outpatient (BNVA) | payer MEDICARE, SELFPAY | PROVIDERS: PCP Family Medicine; Visit Provider Internal Medicine | DX: R06.09 Other forms of dyspnea (principal); I10 Essential (primary) hypertension; Z87.891 Personal history of nicotine dependence | CPT/HCPCS: 99213 ==

== ENCOUNTER 2025-02-10 11:33 | Emergency (ER) | payer MEDICARE, SELFPAY ==
--- NOTE | 2025-02-10 11:36 | XR_ITS ---
WS: [id number] XR hip RT 2-3V wo/w pel* [id number] REASON FOR EXAM: hip pain FINDINGS: No fracture or focal bone lesion. There is mild to moderate narrowing of the joint space with moderate subchondral sclerosis and osteophytosis of the acetabulum. There is osteophytosis of the femoral head. XR/XR hip RT 2-3V wo/w pel* [id number] IMPRESSION: No acute abnormality. Mild to moderate osteoarthritis of the right hip.
[2025-02-10 11:46] VITALS: BP 80/54; PULSE 86; RESP 16; TEMP 36.7; O2SAT 98; BMI 22.8
--- NOTE | 2025-02-10 11:55 | W.ED.EXTPRO ---
HPI - Extremity Problem General: Chief complaint: Extremity Problem,Nontraumatic Stated complaint: R hip pain Time Seen by Provider: 02/10/25 11:55 Source: patient Mode of arrival: ambulatory (with help of a cane) Limitations: no limitations History of Present Illness: Patient is a 64-year-old male who presents to ED today with a main complaint of right hip pain. Patient states he began noticing pain in the joint approximately a week ago. He has not had any known injury or trauma. He states it feels like a arthritis flare . He has had some minimal degree of hip discomforts in the past but nothing to the severity that he is experiencing today. He is ambulatory here with the help of a cane. He states most of his pain is located posteriorly. He does not complain of any radicular symptoms into his thigh or down his leg. He has not noticed any edema to his lower extremity. Denies numbness, tingling, loss of sensation to the leg. Denies color/temperature changes. He does report a previous history of peripheral vascular disease related to his COPD/smoking. He has not noticed any redness or warmth around the joint. No rash. MD Complaint: joint pain Onset (ago): week(s) (one week ago) Pain Consistency: constant Location: right and lower extremity (hip) Radiation: none Relieving factors: immobilization Exacerbating factors: range of motion, weight bearing and walking Associated symptoms: Reports no associated symptoms; Deny fever(s) or rash Related Data Home Medications ?Medication ?Instructions ?Recorded ?Confirmed Men's 50 Plus Multivitamin 1 tab PO DAILY 05/21/20 01/21/25 echinacea 500 mg capsule 500 mg PO DAILY 10/28/24 01/21/25 ropinirole 4 mg tablet 4 mg PO TID 12/24/24 01/21/25 omega 9-jgt-cmd-fish oil 1,000 mg 1 cap PO DAILY 01/07/25 01/21/25 (120 mg-180 mg) capsule (Fish Oil) calcium carbonate 500 mg PO DAILY 01/21/25 01/21/25 vitamin B complex 1 cap PO DAILY 01/21/25 01/21/25 Previous Rx's ?Medication ?Instructions ?Recorded atenolol 25 mg tablet See Rx Instructions .Route 07/06/22 .COMPLEX #90 tabs epinephrine 0.3 mg/0.3 mL 0.3 mg (0.3 mL) IM ONCE PRN 07/06/22 injection, auto-injector Allergic Reaction #2 ea albuterol sulfate 90 mcg/actuation 2 puff inhalation Q6H PRN 12/15/23 aerosol inhaler shortness of breath or wheezing #8.5 grams C-PAP pillow #1 ea 04/10/24 Nebulizer supplies and tubing #1 ea 04/10/24 nebulizer #1 ea 04/10/24 fluticasone furoate 100 1 inh inhalation DAILY #30 ea 06/03/24 mcg/actuation blister powder for inhalation (Arnuity Ellipta) pantoprazole 40 mg tablet,delayed See Rx Instructions .Route 06/17/24 release .COMPLEX #180 tabs atorvastatin 20 mg tablet 20 mg PO BEDTIME #90 tabs 07/15/24 fluticasone propionate 50 See Rx Instructions .Route 08/12/24 mcg/actuation nasal .COMPLEX #16 grams spray,suspension losartan 25 mg tablet See Rx Instructions .Route 08/12/24 .COMPLEX #90 tabs celecoxib 200 mg capsule 200 mg PO BID #180 caps 09/05/24 sumatriptan succinate 100 mg tablet 100 mg PO Q2H headaches 30 days 09/23/24 #20 tabs ipratropium 0.5 mg-albuterol 3 mg 3 ml inhalation Q4H PRN 09/24/24 (2.5 mg base)/3 mL nebulization wheezing/SOB #180 mL soln Stiolto Respimat 2.5 mcg-2.5 2 puff inhalation DAILY #4 grams 12/23/24 mcg/actuation solution for inhalation (tiotropium-olodaterol) syringe with needle 3 mL 23 x 1 #12 ea 12/24/24 (BD Luer-Errol Syringe) testosterone cypionate 200 mg/mL 200 mg IM .q 14 Muscle Fatigue, 12/24/24 intramuscular oil Fatigue, Low energy Level 20 weeks #10 mL tamsulosin 0.4 mg capsule 0.4 mg PO DAILY #90 caps 01/09/25 tramadol 50 mg tablet 50 mg PO BID PRN pain 30 days #60 01/15/25 tabs Allergies Allergy/AdvReac Type Severity Reaction Status Date / Time fluoxetine (From Prozac) Allergy Severe ADR-Irritab Verified 02/10/25 11:48 le insect venom Allergy Severe Anaphylaxis Verified 02/10/25 11:48 grass pollen Allergy Unknown Verified 02/10/25 11:48 house dust Allergy Unknown Verified 02/10/25 11:48 mold Allergy Unknown Verified 02/10/25 11:48 wood dust Allergy Unknown Uncoded 02/10/25 11:48 Review of Systems Const: Denies: fever(s), chills or body aches Musc: Reports: joint pain (R hip); Denies: extremity pain, extremity swelling, joint swelling, joint redness, joint warmth, muscle cramps or muscle weakness Skin/Breast: Denies: rash Neuro: Reports: difficulty walking (secondary to R hip pain); Denies: numbness in extremities, weakness in extremities or sensory changes PFSH ED PFSH: Medical History Right cervical radiculopathy Obstructive sleep apnea on CPAP BPH loc w urin obs/LUTS Memory loss or impairment Chronic right sacroiliac joint pain Chronic neck and back pain Hypertension Obsessive compulsive disorder Generalized anxiety disorder Nicotine dependence, unspecified, uncomplicated Cannabis use disorder, severe, dependence COPD (chronic obstructive pulmonary disease) Methamphetamine use disorder, severe, in early remission, dependence Erectile dysfunction GERD (gastroesophageal reflux disease) Migraine with aura, not intractable, without status migrainosus Hypercholesterolemia Testosterone deficiency Opioid dependence, in remission Restless legs syndrome Surgical History History of carpal tunnel release of both wrists S/P colonoscopy with polypectomy Dr. Mendez 01/29/20 History of cervical spinal surgery 12/02/2019 C5-C6, C6-C7 ACDFF - Dr Moreno S/P hernia surgery Right inguinal repair History of ear surgery History of surgery on upper extremity History of knee surgery Family History Mother Cancer Sister Diabetes Father Heart attack Grandfather Heart attack Social History Smoking and tobacco/nicotine status: former use of tobacco/nicotine Quit status (tobacco/nicotine): has tried quititng Number of times tried to quit tobacco: 10 Second hand smoke exposure: Yes Alcohol intake: former Year of sobriety/quit date alcohol: 2020 Substance/Drug Use: current Substance/Drug use frequency: daily Other substance/drug use details: CBD, medical card, THC Gummies Lives independently: Yes Household members: spouse Marital status: Current occupational status: disabled Pets and animals: No Do you think of yourself as: Straight/Heterosexual Current gender identity: Male Physical Exam Const: COMMON NORMALS: no acute distress, average body habitus, patient oriented x3, no limitations, healthy appearing, alert and well nourished GENERAL APPEARANCE: cooperative ORIENTATION/CONSCIOUSNESS: Yes awake, Yes oriented to person, Yes oriented to place and Yes oriented to time HENMT: COMMON NORMALS: normocephalic and atraumatic HEAD & SCALP: normal to inspection, normocephalic and atraumatic : COMMON NORMALS: Yes no CVA tenderness BLADDER/KIDNEY EXAM: Yes no CVA tenderness Back/Pelvis: COMMON NORMALS: no CVA tenderness, thoracic and lumbar spine normal to inspection, no thoracic nor lumbar tenderness and straight leg raise negative bilaterally PELVIS: Yes sciatic notch tenderness on the right SACRUM: no tenderness COCCYX: no tenderness Extremity: COMMON NORMALS: normal to inspection, capillary refill normal, no joint enlargement, no clubbing, cyanosis or edema, no calf tenderness and no pedal edema GENERAL: Yes normal exam except as noted RIGHT LOWER EXTREMITY: Yes hip joint Right hip: Yes inspection (normal gross inspection of R hip), Yes palpation (TTP R posterior hip joint), Yes ROM (pain with ROM) and Yes neurovascular exam (normal) Neuro: COMMON NORMALS: patient oriented x3, moves all extremities, no focal motor deficits and no sensory deficits noted SENSORIUM/ORIENTATION: Yes alert, Yes oriented to person, Yes oriented to place and Yes oriented to time Course Vital Signs: Vital signs: Vital Signs Temperature 98.0 F 02/10/25 11:46 Pulse Rate 84 02/10/25 12:53 Respiratory Rate 18 02/10/25 12:17 Blood Pressure 110/78 02/10/25 12:11 Pulse Oximetry 99 02/10/25 12:53 Oxygen Delivery Me thod Room Air 02/10/25 12:11 MDM - Extremity (Nontraumatic) Medical Decision Making Patient feeling much better after IM medications given here. He is requesting to go home. States he will continue to take his Celebrex and his Tramadol daily. He believes he has Prednisone at home that he is going to speak to his primary care provider about taking. He will follow-up with them. XR performed here showing arthritis to the right hip. Medical Records I reviewed the patient's medical records. Lab Data Radiology Impressions Hip/Pelvis X-Ray 02/10/25 11:36 IMPRESSION: No acute abnormality. Mild to moderate osteoarthritis of the right hip. All radiology interpretation(s) finalized by discharge Discharge Plan Discharge Patient Disposition: Home Clinical Impression: Arthritis of right hip Condition: Stable Prescriptions: No Action echinacea 500 mg capsule 500 mg PO DAILY Rx Instructions: administer with meals epinephrine 0.3 mg/0.3 mL auto-injector 0.3 mg IM ONCE PRN (Reason: Allergic Reaction) Qty: 2 3RF calcium carbonate 500 mg calcium (1,250 mg) tablet 500 mg PO DAILY vitamin B complex Capsule 1 cap PO DAILY Stiolto Respimat 2.5-2.5 mcg/actuation mist 2 puff inhalation DAILY Qty: 4 3RF ropinirole 4 mg tablet 4 mg PO TID (DME) BD Luer-Errol Syringe 3 mL 23 x 1 syringe See Rx Instructions .ROUTE .COMPLEX Qty: 12 3RF Dose Instruction: DIRECTED Rx Instructions: DIRECTED testosterone cypionate 200 mg/mL oil 200 mg IM .q 14 140 Days Qty: 10 3RF celecoxib 200 mg capsule 200 mg PO BID Qty: 180 1RF omega 7-bui-dgq-fish oil [Fish Oil] 1,000 (120-180) mg capsule 1 cap PO DAILY atenolol 25 mg tablet See Rx Instructions .ROUTE .COMPLEX Qty: 90 1RF Dose Instruction: TAKE 1 TABLET BY MOUTH DAILY Rx Instructions: TAKE 1 TABLET BY MOUTH DAILY albuterol sulfate 90 mcg/actuation HFA aerosol inhaler 2 puff inhalation Q6H PRN (Reason: shortness of breath or wheezing) Qty: 8.5 3RF (DME) nebulizer See Rx Instructions .Route .MEDSUPPLY Qty: 1 0RF Rx Instructions: As directed (DME) C-PAP pillow See Rx Instructions .Route .MEDSUPPLY Qty: 1 0RF Rx Instructions: As directed (DME) Nebulizer supplies and tubing See Rx Instructions .Route .MEDSUPPLY Qty: 1 5RF Rx Instructions: As directed Arnuity Ellipta 100 mcg/actuation blister with device 1 inh inhalation DAILY Qty: 30 6RF pantoprazole 40 mg tablet,delayed release (DR/EC) See Rx Instructions .ROUTE .COMPLEX Qty: 180 3RF Dose Instruction: TAKE ONE TABLET BY MOUTH TWICE DAILY Rx Instructions: TAKE ONE TABLET BY MOUTH TWICE DAILY atorvastatin 20 mg tablet 20 mg PO BEDTIME Qty: 90 3RF losartan 25 mg tablet See Rx Instructions .ROUTE .COMPLEX Qty: 90 1RF Dose Instruction: TAKE ONE TABLET BY MOUTH EVERY DAY Rx Instructions: TAKE ONE TABLET BY MOUTH EVERY DAY fluticasone propionate 50 mcg/actuation spray,suspension See Rx Instructions .ROUTE .COMPLEX Qty: 16 5RF Dose Instruction: USE 2 SPRAYS IN EACH NOSTRIL EVERY DAY FOR SIX MONTHS Rx Instructions: USE 2 SPRAYS IN EACH NOSTRIL EVERY DAY FOR SIX MONTHS sumatriptan succinate 100 mg tablet 100 mg PO Q2H 30 Days Qty: 20 5RF ipratropium-albuterol 0.5 mg-3 mg(2.5 mg base)/3 mL solution for nebulization 3 ml inhalation Q4H PRN (Reason: wheezing/SOB) Qty: 180 2RF tamsulosin 0.4 mg capsule 0.4 mg PO DAILY Qty: 90 2RF tramadol 50 mg tablet 50 mg PO BID PRN (Reason: pain) 30 Days Qty: 60 2RF Rx Instructions: one tab twice a day as needed for moderate to severe pain Men's 50 Plus Multivitamin 1 tab PO DAILY Discharge Orders: Discharge ED (Routine); Ordered 02/10/25 Ordered By: Tess Mancini Referrals: Demetrius Amador MD [Primary Care Provider, Family Practice] Activity Restrictions/Additional Instructions: As we discussed, you may follow-up with primary care for further care and evaluation of your right hip discomfort. Continue your Celebrex daily as directed and Tramadol as needed for discomfort. Print Language: [place]guill[place] Coding Level of Care Code ED Compliance Investigator for Alma Kenny
[2025-02-10 12:11] VITALS: BP 110/78; PULSE 78; O2SAT 97
[2025-02-10 12:17] VITALS: RESP 18; O2SAT 94
[2025-02-10] MEDS: morphine 4 mg/mL SDV 1 mL IM (12:17)
[2025-02-10] MEDS: dexamethasone 10 mg/mL INJ 8 MG IM (12:18)
[2025-02-10] MEDS: ketorolac 60 mg/2 mL INJ IM (12:18)
--- NOTE | 2025-02-10 12:50 | PC.NURSE ---
pt removed vs equipment and states I feel so much better I'm ready to leave now. requesting to go home. Tess SHAH notified.
[2025-02-10 12:53] VITALS: PULSE 84; O2SAT 99
== END 2025-02-10 12:54 | disposition home or self-care (01) ==
PROVIDERS: Emergency Provider Physician Assistant; PCP Family Medicine
DX: M16.11 Unilateral primary osteoarthritis, right hip (principal); Z87.891 Personal history of nicotine dependence; J44.9 Chronic obstructive pulmonary disease, unspecified; I10 Essential (primary) hypertension
CPT/HCPCS: 73502; 96372; 99284; J1100; J1885; J2270

== ENCOUNTER → 2025-03-17 08:51 | Outpatient (BNVA) | payer MEDICARE, SELFPAY | PROVIDERS: PCP Family Medicine; Referring Provider Family Medicine; Visit Provider Anesthesiology Pain Medicine | DX: M54.2 Cervicalgia (principal); M54.9 Dorsalgia, unspecified; G89.29 Other chronic pain; M16.11 Unilateral primary osteoarthritis, right hip; M47.22 Other spondylosis with radiculopathy, cervical region; G56.01 Carpal tunnel syndrome, right upper limb | CPT/HCPCS: 99204 ==

== ENCOUNTER 2025-03-25 07:50 | Outpatient (CLI) | payer MEDICARE, SELFPAY ==
--- NOTE | 2025-03-25 08:00 | MR_ITS ---
WS: [id number] MRI LUMBAR SPINE NONCONTRAST HISTORY: M54.16 - Radiculopathy, lumbar region COMPARISON: 01/03/2017 TECHNIQUE: Sagittal and axial multisequence imaging is submitted. Prior anterior cervical fusion with interbody spacers from C5-C7. There is mild osteophyte encroachment upon the ventral cervical cord at C3-4 and C4-5. L2 and L3 retrolisthesis by 2 mm. There has been significant progression of degenerative changes in the lumbar spine since 2017. Most significant changes involving the disc and vertebral bodies at L2-3 and L3-4. Disc space narrowing and desiccation most significant at L2-3 and L3-4. Reactive marrow edema in L2, L3 and L4. No fracture. Conus terminates normally at L1-2 disc level. L1-L2: Normal. L2-L3: Diffuse annular disc bulging with bilateral foraminal disc protrusions. Moderate ligamentum flavum and facet arthritis. Fluid in the facet joints. Mild central with bilateral subarticular recess stenosis. More significant bilateral foraminal stenosis which is moderate to severe and greatest on the LEFT. L3-L4: Diffuse annular disc bulging with advanced facet and ligamentum flavum hypertrophy. Fluid bilaterally in the facet joints. L4-L5: Mixed signal RIGHT paracentral/subarticular recess disc protrusion which extends subarticular and superior from the disc level posterior to the L4 vertebral body. Deformity of the thecal sac and contact most significant on the traversing RIGHT L4 nerve root. There is additional contact on the LEFT traversing L4 nerve root. Disc osteophyte complexes in the foramina. Severe RIGHT foraminal stenosis and moderate LEFT foraminal stenosis. Severe central and bilateral subarticular recess stenosis. L5-S1: Mild annular disc bulging. Mild RIGHT and moderate LEFT foraminal stenosis due to disc osteophyte disease. No central stenosis. MR/MR lumbar spine wo con* [id number] IMPRESSION: 1. Significant progression of degenerative spondylitic changes in the lumbar s pine since 2017. 2. L4-5: Large RIGHT paracentral and subarticular recess disc protrusion which extends superior from the disc level. Additional disc osteophyte complexes in the foramina. Severe central, bilateral subarticular recess and RIGHT foraminal stenosis with moderate LEFT foraminal stenosis. There is significant disc cont act on the RIGHT L4 and L5 nerve roots. Lesser amount on the LEFT. 3. L2-3: Mild central and bilateral subarticular recess stenosis. Moderate to severe bilateral foraminal stenosis, greater on the LEFT due to disc osteophyte disease. 4. Multilevel facet joint arthropathy most significant at L4-5.
== END 2025-03-25 07:51 | disposition home or self-care (01) ==
LOC: RAD 07:51
PROVIDERS: PCP Family Medicine; Visit Provider Anesthesiology Pain Medicine
DX: M47.26 Other spondylosis with radiculopathy, lumbar region (principal); M51.26 Other intervertebral disc displacement, lumbar region; M25.78 Osteophyte, vertebrae; M48.061 Spinal stenosis, lumbar region without neurogenic claudication
CPT/HCPCS: 72148

== ENCOUNTER → 2025-03-26 14:17 | Outpatient (BNVA) | payer MEDICARE, SELFPAY | PROVIDERS: PCP Family Medicine; Visit Provider Anesthesiology Pain Medicine | DX: M16.11 Unilateral primary osteoarthritis, right hip (principal) | CPT/HCPCS: 20610; 77002; J1010; J3490 ==

== ENCOUNTER → 2025-04-08 09:45 | Outpatient (BNVA) | payer MEDICARE, SELFPAY | PROVIDERS: PCP Family Medicine; Visit Provider Anesthesiology Pain Medicine | DX: M17.12 Unilateral primary osteoarthritis, left knee (principal); M16.12 Unilateral primary osteoarthritis, left hip; M16.11 Unilateral primary osteoarthritis, right hip; M54.2 Cervicalgia; M54.9 Dorsalgia, unspecified; G89.29 Other chronic pain; M47.22 Other spondylosis with radiculopathy, cervical region; G56.01 Carpal tunnel syndrome, right upper limb | CPT/HCPCS: 73562; 99214 ==

== ENCOUNTER → 2025-04-09 11:00 | Outpatient (BNVA) | payer MEDICARE, SELFPAY | PROVIDERS: PCP Family Medicine; Visit Provider Anesthesiology Pain Medicine | DX: M16.11 Unilateral primary osteoarthritis, right hip (principal) | CPT/HCPCS: 20610; 77002; J1010; J3490; J9999 ==

== ENCOUNTER → 2025-04-21 15:13 | Outpatient (BNVA) | payer MEDICARE, SELFPAY | PROVIDERS: PCP Family Medicine; Visit Provider Anesthesiology Pain Medicine | DX: M25.559 Pain in unspecified hip (principal); M54.2 Cervicalgia; M54.9 Dorsalgia, unspecified; G89.29 Other chronic pain; M16.11 Unilateral primary osteoarthritis, right hip; M47.22 Other spondylosis with radiculopathy, cervical region; G56.01 Carpal tunnel syndrome, right upper limb; M16.12 Unilateral primary osteoarthritis, left hip; M25.562 Pain in left knee; F17.210 Nicotine dependence, cigarettes, uncomplicated | CPT/HCPCS: 99214 ==

== ENCOUNTER → 2025-07-22 13:08 | Outpatient (BNVA) | payer MEDICARE, SELFPAY | PROVIDERS: PCP Family Medicine; Visit Provider Anesthesiology Pain Medicine | DX: M16.12 Unilateral primary osteoarthritis, left hip (principal) | CPT/HCPCS: 20610; 77002; J1010; J3490; J9999 ==

== ENCOUNTER → 2025-08-11 14:18 | Outpatient (BNVA) | payer MEDICARE, SELFPAY | PROVIDERS: PCP Family Medicine; Visit Provider Anesthesiology Pain Medicine | DX: M54.9 Dorsalgia, unspecified (principal); G89.29 Other chronic pain; M47.22 Other spondylosis with radiculopathy, cervical region; G56.01 Carpal tunnel syndrome, right upper limb; M16.12 Unilateral primary osteoarthritis, left hip; M25.562 Pain in left knee; M16.0 Bilateral primary osteoarthritis of hip; F17.210 Nicotine dependence, cigarettes, uncomplicated | CPT/HCPCS: 99214 ==

== ENCOUNTER → 2025-08-20 14:22 | Outpatient (BNVA) | payer MEDICARE, SELFPAY | PROVIDERS: PCP Family Medicine; Visit Provider Anesthesiology Pain Medicine | DX: Z01.89 Encounter for other specified special examinations (principal); Z51.81 Encounter for therapeutic drug level monitoring; M16.11 Unilateral primary osteoarthritis, right hip | CPT/HCPCS: 20610; 77002; J1010; J3490; J9999 ==